=== PATIENT | female | born 1955 | race Caucasian/White ===

== ENCOUNTER 2023-03-20 15:57 | Inpatient (IN) ==
[2023-03-20] MEDS ORDERED: 0.9 % SODIUM CHLORIDE 1,000 ML IV ONE (16:20)
--- NOTE | 2023-03-20 16:26 | Emergency Department Note ---
HPI General Chief complaint: Nausea/Vomiting/Diarrhea Stated complaint: Recheck labs Time Seen by Provider: 03/20/23 16:06 Source: family Mode of arrival: ambulatory Limitations: no limitations History of Present Illness HPI Narrative: Narrative: 67-year-old female presents to the emergency department after being seen at the [facility] for acute kidney injury, vomiting, and abdominal pain. Patient states that she has been vomiting for the past 3 days. She vomits every time she tries to eat or drink unless she is taking Zofran. Zofran does seem to control her symptoms. She has recently taken Zofran and is not currently nauseated. She has had pain in the upper abdomen that she describes as a pressure and bloating. It is relieved some with belching. She has had a few very small bowel movements and is passing minimal gas. She is urinating occasionally, her urine is dark in color. On review of systems patient admits to chills, she was feeling short of breath when she was more bloated, this is resolved, she has no other complaints. Related Data Previous Rx's Medication Instructions Recorded Relaxis Pad #1 ea 11/10/17 levothyroxine 150 mcg tablet See Rx Instructions .Route 09/12/20 .COMPLEX #90 tabs pramipexole 0.5 mg tablet See Rx Instructions .Route 10/11/20 .COMPLEX #90 tabs Allergies Allergy/AdvReac Type Severity Reaction Status Date / Time ropinirole [From Requip] AdvReac Mild Headache Verified 03/20/23 21:18 Shell Fish AdvReac Unknown Swelling Uncoded 03/20/23 21:23 of Lip/Tongue/Throat Review of Systems ROS ROS Narrative: Narrative: All systems ED: reviewed and negative except as stated. [facility] Narrative Patient History Narrative: Narrative: Medical/Surgical/Family History All Active Problems (Updated 03/20/23 @ 21:57 by Linda Lau PA-C) Acute kidney injury (Acute) Nausea & vomiting (Acute) Dyspnea on exertion (Acute) Cough (Acute) Acute bacterial sinusitis (Acute) Encounter for Health Maintenance Examination in Adult (Chronic) H/O esophagogastroduodenoscopy (Acute 05/11/99) History of hysterectomy (Chronic ~01/2003) History of oophorectomy (Acute) History of colonoscopy (Acute 03/02/08) History of carpal tunnel release (Acute) History of thyroidectomy (Chronic ~1992) History of tubal ligation (Acute ~1979) Lumbosacral or thoracic radiculopathy (Acute) Kidney stones (Chronic) Dyspepsia (Acute) Hypothyroidism (acquired) (Chronic 05/10/13) Situational depression (Chronic) RLS (restless legs syndrome) (Chronic) Rhinitis, allergic (Chronic) Thyroid nodule (Acute) Carpal tunnel syndrome (Acute) Colon polyps (Acute) Back pain (Acute) 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 Component of restless leg, stable on Mirapex Carpal tunnel syndrome Bilateral carpal tunnel. Nerve conduction study 04/14/12 in [facility]--Dr Ger Correa. Left hand carpal tunnel surgery 04/16/13--Dr Puentes; right hand approx. 05/2013 Colon polyps Colonoscopy 06/06/2008--Dr Vigil--hyperplastic polyp; mild uncomplicated divertculosis, left colon; hemorrhoids. Known family history of non-malignant polyps. Rescreen 8-40 years. Dyspepsia History of functional dyspepisa; negative H. pylori serology, EGD 1998 (Dr Vigil) Stable currently on hygenic measures. Hypothyroidism (acquired) (05/10/13) Kidney stones Distant HX; minimizes calcium intake; no calcium supplements. Lumbosacral or thoracic radiculopathy HX of low back pain; previous MRI and sequencing at the pain clinic. Component of restless leg; stable on Mirapex. Rhinitis, allergic Uses occasional over the counter antihistamines; does not get frequent infections RLS (restless legs syndrome) Stable on Mirapex Situational depression Family stress. 11/12/2012. Zoloft Thyroid nodule Hx benign by surgery in 1992 with subtotal thyroidectomy, Now on replacement therapy and goiter suppression Surgical History H/O esophagogastroduodenoscopy (05/11/99) Non-atrophic chronic gastritis, negative H pylori History of carpal tunnel release Left hand 04/16/12--DR PUENTES; right hand approx. 05/2012. History of colonoscopy (03/02/08) hyperplastic polyps. Rescreen 8-10 years History of hysterectomy (~01/2003) Total abdominal hysterectomy and bilateral salpingooophorectomy--Dr Kamar Alfonso History of oophorectomy 01/2003 Total abdominal hysterectomy and bilateral salpingooophorectomy-- Dr. Kamar Dotson History of thyroidectomy (~1992) Subtotal History of tubal ligation (~1979) Family History Sister Colon polyp Grandmother Lung cancer Mother Diabetes mellitus, type II HTN (hypertension) Father HTN (hypertension) Social History Smoking Status: Never smoker Alcohol Intake Frequency: holiday/special occasion only Substance Use: does not use Exam Narrative Narrative: Narrative: General Limitations: no limitations General appearance: Present alert and in no apparent distress Head Head: Present atraumatic Eye Eye: Present normal appearance and PERRL ENT ENT: Present other (Dry mucous membranes) Neck Neck: Absent lymphadenopathy Respiratory Respiratory: Present normal lung sounds bilaterally Cardiovascular Cardiovascular: Present regular rate and normal heart sounds Adbominal Abdominal: Present soft, normal bowel sounds and other (Left lower abdominal tenderness.) Extremities Extremities: Present normal inspection; Absent pedal edema or calf tenderness Back Back: Absent CVA tenderness (R) or CVA tenderness (L) Neurological Neurological: Present alert and oriented X3 Psychiatric Psychiatric: Present normal affect Skin Skin: Present warm (WNL) and dry Course Vital Signs Vital signs: Vital Signs Temperature 97.2 F 03/20/23 16:00 Pulse Rate 80 03/20/23 16:00 Respiratory Rate 17 03/20/23 16:00 Blood Pressure 185/84 03/20/23 16:00 Pulse Oximetry (%) 95 03/20/23 16:00 Oxygen Delivery Method Room Air 03/20/23 16:00 Temperature 98.6 F 03/20/23 21:28 Pulse Rate 65 03/20/23 21:28 Respiratory Rate 17 03/20/23 21:28 Blood Pressure 171/85 03/20/23 21:28 Pulse Oximetry (%) 95 03/20/23 21:28 Oxygen Delivery Method Room Air 03/20/23 21:28 [facility] MDM Narrative Medical decision making narrative: Narrative: Differential includes gastroenteritis, bowel obstruction, diverticulitis. Labs reviewed from minor care visit earlier today. White cell count 12.6 with no left shift, no anemia. BUN 35, creatinine 2.8. Patient is treated with IV fluids. She was offered medication for nausea and vomiting, but declined at this time. CT scan of the abdomen pelvis without IV contrast was ordered. CT scan shows no acute changes. Patient has acute kidney injury, likely due to dehydration from severe vomiting. I discussed the patient with hospitalist who is agreed to admit her. Lab Data Labs: Lab Results 03/20/23 03/20/23 03/20/23 Range/Units 17:51 17:51 17:51 TSH (0.27-5.01) uIU/mL Free T4 (0.93-1.70) ng/dL Urine Color Dobson Urine Appearance Cloudy A (Clear) Urine pH 5.0 (5.0-9.0) Ur Specific [place] 1.011 (1.000-1.035) Urine Protein 100 A (Negative) mg/dL Urine Glucose (UA) Negative (Negative) mg/dL Urine Ketones Negative (Negative) mg/dL Urine Occult Blood >=1.0 A (Negative) mg/dL Urine Nitrate Negative (Negative) Urine Bilirubin Negative (Negative) mg/dL Urine Urobilinogen Negative mg/dL Ur Leukocyte Esterase 250 A (Negative) /uL Urine RBC > 182 H (0-1) /hpf Urine WBC 137 H (0-4) /hpf Ur Squamous Epith Cells 0 (0-4) /hpf Urine Bacteria None (0) /hpf Hyaline Casts 221 H (0-2) /lph Ur Culture Indicated? yes Ur Random Creatinine 237.6 H (28.0-217.0) mg/dL Ur Random Sodium 11 mmol/L 03/20/23 Range/Units 18:35 TSH 0.01 L (0.27-5.01) uIU/mL Free T4 2.00 H (0.93-1.70) ng/dL Urine Color Urine Appearance (Clear) Urine pH (5.0-9.0) Ur Specific [place] (1.000-1.035) Urine Protein (Negative) mg/dL Urine Glucose (UA) (Negative) mg/dL Urine Ketones (Negative) mg/dL Urine Occult Blood (Negative) mg/dL Urine Nitrate (Negative) Urine Bilirubin (Negative) mg/dL Urine Urobilinogen mg/dL Ur Leukocyte Esterase (Negative) /uL Urine RBC (0-1) /hpf Urine WBC (0-4) /hpf Ur Squamous Epith Cells (0-4) /hpf Urine Bacteria (0) /hpf Hyaline Casts (0-2) /lph Ur Culture Indicated? Ur Random Creatinine (28.0-217.0) mg/dL Ur Random Sodium mmol/L Discharge Plan Patient/Caregiver Discharge Instructions Pt seen by REAL ESTATE ADMINISTRATIVE ASSISTANT/PA only: Yes Clinical Impression: Acute kidney injury, Nausea & vomiting Patient Disposition: Xfer As Inpt ([facility]) Discharge Date/Time: 03/20/23 21:01
--- NOTE | 2023-03-20 17:37 | Cat Scan Report ---
INDICATION: Left sided abdominal pain, nausea and vomiting COMPARISON: Plain film examination dated 03/20/2023 TECHNIQUE: Axial images were obtained through the abdomen and pelvis. Sagittally and coronally reformatted images. FINDINGS: Lung bases:Small bilateral pleural effusions, right larger than left. There is groundglass opacity in both lower lobes, right worse than left. Pneumonia is possible. Linear densities are consistent with scarring or atelectasis. Liver:Negative to the limits of noncontrast enhanced examination. Liver contour is smooth without evidence for cirrhosis Gallbladder, bilary:No calcified gallstones. No gallbladder wall thickening. No pericholecystic fluid. No dilated bile ducts Spleen:No splenomegaly Pancreas:No pancreatic mass. No peripancreatic abnormality Adrenal glands:Negative Kidneys,ureters,bladder:No solid renal mass. No hydronephrosis. No obstructing or nonobstructing calculi. No hydroureter. No ureteral calculus. No bladder stone. No detectable bladder mass. Gastrointestinal:Sigmoid colon diverticulosis. No evidence for diverticulitis. No detectable colonic mass. Negative small bowel. No mechanical small bowel obstruction. No bowel wall thickening. No focal abnormality. Negative stomach and duodenum. No focal abnormality. Appendix: The appendix is negative. There is a small appendicolith. No evidence for acute appendicitis Vascular:Mild calcification of the abdominal aorta. No abdominal aortic aneurysm Lymphatic:No retroperitoneal adenopathy. No significant mesenteric adenopathy. Mesentery, peritoneum:There is a small amount of free pelvic fluid. There are multiple surgical clips within the pelvis. No focal intra-abdominal abscess. No pneumoperitoneum. Reproductive:Previous hysterectomy. No adnexal mass Musculoskeletal:No lumbar compression fractures. No lytic lesions. Sacrum, pelvis, hips are negative No anterior abdominal wall or inguinal hernia. IMPRESSION: 1. Free pelvic fluid. No intra-abdominal abscess. No pneumoperitoneum 2. Multiple surgical clips in the pelvis. 3. Previous hysterectomy 4. Mild colonic diverticulosis. No evidence for diverticulitis 5. Small pleural effusions, right larger than left. Bilateral lower lobe parenchymal density may be secondary to pneumonia The exam was performed using radiation dose optimization techniques including, but not limited to, automated exposure control, adjustment of the mA and/or kV according to patient size and use of iterative reconstruction technique. Interpreted and Authenticated by: Malachi Taylor 03/20/23
[2023-03-20 18:59] LABS: Appearance,Urine CLOUDY (Clear); Bilirubin,Urine Negative (Negative); Color,Urine Tan; Culture Indicated,Urine yes; Glucose,Urine (UA) Negative (Negative); Ketones,Urine Negative (Negative); Leukocyte Esterase,Urine 250 /uL (Negative); Nitrate,Urine Negative (Negative); Protein,Urine 100 mg/dL (Negative); Specific Gravity,Urine 1.011 (1.000-1.035); Urine Blood >=1.0 mg/dL (Negative); Urine Hyaline Cast 221 /lph (0-2); Urine RBC > 182 /hpf (0-1); Urine Squamous Epithelial Cell 0 /hpf (0-4); Urine WBC 137 /hpf (0-4); Urobilinogen,Urine Negative
--- NOTE | 2023-03-20 19:24 | Internal Med History&Physical ---
HPI History of Present Illness Patient information: Note initiated : 03/20/23 at 7:18 pm Service Date, if different from initiated Date: [] Patient: Pilar Navarro a 67 y/o F admitted on for Recheck labs. Chief Complaint: [] History of present illness: Ms. Navarro is a 67 year old F Presents the ED with nausea vomiting and constipation. Patient states that since Friday afternoon she developed nausea vomiting. She is been vomiting 10-12 times per day. Unable to keep anything down. Has not been around anybody's been sick and no eating out any restaurants. She has been stressed lately though with a family gathering and her dog has been sick. She is been tired lately. Has some shortness of breath with ambulation and she says associated with this abdominal bloating. She says she had abdominal bloating lately. Says she is gained 10 pounds lately. She has a headache. No fever chills. Thyroid last checked last year on her annual exam. No change in medications. She said decreased urine output lately. She has a dry cough. Blood pressure was elevated in the ED at 185/84. She says last time she took it was a month ago and it was systolic in the 120s. She was seen at [facility] and told she was constipated and given some laxatives but then was called back because the lab work came back with acute kidney injury. Her creatinine was 2.8 up from an normal level. BUN elevated 35 and sodium mildly low 132. She also been having increased acid reflux. Urine in the ED was concerning for infection. She had a mild leukocytosis of 12.6. UA also showing prominent hyaline casts, is indicative of volume depletion from nausea vomiting and poor oral intake. CT abdomen pelvis did not show any obstruction or acute intra-abdominal pathology. Review of Systems: Pertinent positives as above. Denies fever/chills/chest or abdominal pain/diarrhea. Remaining 10 point review of system reviewed negative PHYSICAL EXAM General: Alert, Awake, No acute Distress, obese Eyes/N/T: EOMI, no scleral icterus, PERRL, dry MM Head/Neck: neck supple, full ROM, normocephalic atraumatic CV: RRR, No murmurs, normal s1/s2 Pulm: Clear b/l, no wheezing/rhonchi/rales, no respiratory distress Abd: soft, nontender, +BS x4 Ext: no clubbing/cyanosis/edema, nontender Neuro: Alert, CN 2-12 grossly intact, no focal deficits, moves all extremities, , sensations intact b/l upper/lower Psychiatric: Skin: warm/dry, normal color PFSH PFSH All Active Problems Dyspnea on exertion (Acute) Cough (Acute) Acute bacterial sinusitis (Acute) Encounter for Health Maintenance Examination in Adult (Chronic) H/O esophagogastroduodenoscopy (Acute 05/11/99) History of hysterectomy (Chronic ~01/2003) History of oophorectomy (Acute) History of colonoscopy (Acute 03/02/08) History of carpal tunnel release (Acute) History of thyroidectomy (Chronic ~1992) History of tubal ligation (Acute ~1979) Lumbosacral or thoracic radiculopathy (Acute) Kidney stones (Chronic) Dyspepsia (Acute) Hypothyroidism (acquired) (Chronic 05/10/13) Situational depression (Chronic) RLS (restless legs syndrome) (Chronic) Rhinitis, allergic (Chronic) Thyroid nodule (Acute) Carpal tunnel syndrome (Acute) Colon polyps (Acute) Back pain (Acute) 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 Component of restless leg, stable on Mirapex Carpal tunnel syndrome Bilateral carpal tunnel. Nerve conduction study 04/14/12 in [place]--Dr Ger Correa. Left hand carpal tunnel surgery 04/16/13--Dr Puentes; right hand approx. 05/2013 Colon polyps Colonoscopy 06/06/2008--Dr Vigil--hyperplastic polyp; mild uncomplicated divertculosis, left colon; hemorrhoids. Known family history of non-malignant polyps. Rescreen 8-40 years. Dyspepsia History of functional dyspepisa; negative H. pylori serology, EGD 1998 (Dr Vigil) Stable currently on hygenic measures. Hypothyroidism (acquired) (05/10/13) Kidney stones Distant HX; minimizes calcium intake; no calcium supplements. Lumbosacral or thoracic radiculopathy HX of low back pain; previous MRI and sequencing at the pain clinic. Component of restless leg; stable on Mirapex. Rhinitis, allergic Uses occasional over the counter antihistamines; does not get frequent infections RLS (restless legs syndrome) Stable on Mirapex Situational depression Family stress. 11/12/2012. Zoloft Thyroid nodule Hx benign by surgery in 1992 with subtotal thyroidectomy, Now on replacement therapy and goiter suppression Surgical History H/O esophagogastroduodenoscopy (05/11/99) Non-atrophic chronic gastritis, negative H pylori History of carpal tunnel release Left hand 04/16/12--DR PUENTES; right hand approx. 05/2012. History of colonoscopy (03/02/08) hyperplastic polyps. Rescreen 8-10 years History of hysterectomy (~01/2003) Total abdominal hysterectomy and bilateral salpingooophorectomy--Dr Kamar Alfonso History of oophorectomy 01/2003 Total abdominal hysterectomy and bilateral salpingooophorectomy-- Dr. Kamar Dotson History of thyroidectomy (~1992) Subtotal History of tubal ligation (~1979) Family History Sister Colon polyp Grandmother Lung cancer Mother Diabetes mellitus, type II HTN (hypertension) Father HTN (hypertension) Social History household members: significant other housing: house lives independently: Yes marital status: occupational status: employed occupation: Nurse at [employer] smoking status: Never smoker alcohol intake frequency: holiday/special occasion only substance use type: does not use MEDS/ALLERGIES Home Medications and Allergies Home Medications Medication Instructions Recorded Confirmed Type Relaxis Pad #1 ea 11/10/17 03/20/23 Rx levothyroxine 150 mcg tablet See Rx Instructions .Route 09/12/20 03/20/23 Rx .COMPLEX #90 tabs pramipexole 0.5 mg tablet See Rx Instructions .Route 10/11/20 03/20/23 Rx .COMPLEX #90 tabs Allergies Allergy/AdvReac Type Severity Reaction Status Date / Time ropinirole [From Requip] Allergy Unknown Headache Verified 03/20/23 12:48 Shell Fish Allergy Unknown Unknown Uncoded 03/20/23 12:48 EXAM Constitutional Vitals: Temp Pulse Resp BP Pulse Ox O2 Del Method 97.2 F 76 17 169/72 96 Room Air 03/20/23 16:00 03/20/23 19:01 03/20/23 16:00 03/20/23 19:01 03/20/23 19:01 03/20/23 16:00 DATA Data Completed and Pending Labs: Labs from last 24 hours 03/20/23 03/20/23 03/20/23 18:35 17:51 17:51 TSH Pending Free T4 Pending Urine Color Urine Appearance Urine pH Ur Specific [place] Urine Protein Urine Glucose (UA) Urine Ketones Urine Occult Blood Urine Nitrate Urine Bilirubin Urine Urobilinogen Ur Leukocyte Esterase Urine RBC Urine WBC Ur Squamous Epith Cells Urine Bacteria Hyaline Casts Ur Culture Indicated? Ur Random Creatinine 237.6 H Ur Random Sodium 11 03/20/23 17:51 TSH Free T4 Urine Color Dobson Urine Appearance Cloudy A Urine pH 5.0 Ur Specific [place] 1.011 Urine Protein 100 A Urine Glucose (UA) Negative Urine Ketones Negative Urine Occult Blood >=1.0 A Urine Nitrate Negative Urine Bilirubin Negative Urine Urobilinogen Negative Ur Leukocyte Esterase 250 A Urine RBC > 182 H Urine WBC 137 H Ur Squamous Epith Cells 0 Urine Bacteria None Hyaline Casts 221 H Ur Culture Indicated? yes Ur Random Creatinine Ur Random Sodium A/P Narrative A/P Narrative: A: *N/V: Unknown etiology, ?viral Gastroenteritis *KEMI on CKD II: *Hypothyroidism: On levothyroxine *UTI: *HYponatremia: *HTN: Patient states blood pressure typically normal, not on home Medication *Obesity: BMI 36 *Anxiety: Situational lately *RLS: On pramipexole *GERD w/pyrosis: On Prilosec *Constipation: * P: -IVF -monitor UOP/renal function -Monitor and replace electrolytes -Follow-up sodium -Antiemetics -check TSH/T4, -carafate x1 -Rocephin, pending UC. monitor cbc -prn IV hydralazine, monitor BP -Bowel regimen -Home medication reconciliation -PT/OT -ppx: Lovenox / ppi Time Spent With Patient Time: Total time spent is greater than 50% in coordination of care (as documented) at patient's floor/unit and/or counseling patient: Initial: Total time with patient: 75 - 90 minutes
[2023-03-20 19:30] LABS: Thyroid Stimulating Hormone 0.01 uIU/mL (0.27-5.01)
[2023-03-20] MEDS ORDERED: ACETAMINOPHEN 325 MG TABLET PO PRN (21:02)
[2023-03-20] MEDS ORDERED: POTASSIUM CHLORIDE 20 MEQ TABLET PO PRN ×2 (21:02)
[2023-03-20] MEDS ORDERED: cefTRIAXone 1 GM in DEXTROSE 5% IN WATER 50 ML IV SCH (21:02)
[2023-03-20] MEDS ORDERED: SUCRALFATE 1 GM/10 ML ORAL.SUSP PO ONE (21:02)
[2023-03-20] MEDS ORDERED: POTASSIUM CHLORIDE 40 MEQ in DEXTROSE 5% IN WATER 500 ML IV PRN (21:02)
[2023-03-20] MEDS ORDERED: MAGNESIUM SULFATE 2 GM/50 ML BAG IV PRN (21:02)
[2023-03-20] MEDS ORDERED: SENNOSIDES 1 TABLET PO PRN (21:02)
[2023-03-20] MEDS ORDERED: POLYETHYLENE GLYCOL 3350 17 GM PACKET PO PRN (21:02)
[2023-03-20] MEDS ORDERED: SENNOSIDES 8.8 MG/5 ML ML PT ONE (21:02)
[2023-03-20] MEDS: 0.9 % SODIUM CHLORIDE 1,000 ML IV SCH (21:41)
[2023-03-20] MEDS: DOCUSATE SODIUM 100 MG CAPSULE PO SCH (22:30)
[2023-03-20] MEDS: PRAMIPEXOLE 0.25 MG TABLET PO SCH (22:30)
[2023-03-20] MEDS: POLYETHYLENE GLYCOL 3350 17 GM PACKET PO SCH (22:31)
[2023-03-20] MEDS: SIMETHICONE 80 MG TAB.CHEW CHEWED SCH (22:31)
[2023-03-20] MEDS: hydrALAZINE 20 MG/ML VIAL IV PRN (22:31)
[2023-03-20] MEDS: 0.9 % SODIUM CHLORIDE 10 ML SYRINGE IV SCH (22:32)
[2023-03-20] MEDS: cefTRIAXone 1 GM VIAL IV SCH (22:32)
[2023-03-20] MEDS: ONDANSETRON 4 MG/2 ML VIAL IV PRN (22:59)
[2023-03-21] MEDS ORDERED: HYDROcodone/APAP 5/325MG TABLET PO PRN (00:14)
[2023-03-21] MEDS ORDERED: HYDROcodone/APAP 5/325MG TABLET PO ONE (00:21)
[2023-03-21] MEDS: 0.9 % SODIUM CHLORIDE 10 ML SYRINGE IV SCH ×4 (04:21→23:07)
[2023-03-21] MEDS: ONDANSETRON 4 MG/2 ML VIAL IV PRN (04:21)
[2023-03-21] MEDS: IPRATROPIUM/ALBUTEROL 3 ML AMPUL.NEB NEB PRN ×2 (05:11→22:54)
[2023-03-21 06:32] LABS: Basophils # (Auto) 0.03 K/mcL (0.00-0.30); Basophils % (Auto) 0.2 % (0.0-2.0); Eosinophils # (Auto) 0.02 K/mcL (0.00-0.70); Eosinophils % (Auto) 0.2 % (0.0-7.0); Hematocrit 35.7 % (34.1-44.9); Hemoglobin 11.8 g/dL (11.2-15.7); Lymphocytes # (Auto) 1.51 K/mcL (1.50-4.80); Lymphocytes % (Auto) 11.7 % (15.5-49.0); Mean Cell Volume 85.8 fL (80.0-100.0); Mean Corpuscular HGB Conc 33.1 g/dL (31.0-36.0); Mean Platelet Volume 10.1 fL (8.8-12.5); Monocytes # (Auto) 0.77 K/mcL (0.10-0.90); Platelet Count 277 K/mcL (140-440); RBC 4.16 M/mcL (3.59-5.38); Red Cell Distribution Width 11.3 % (11.5-14.5); WBC 12.9 K/mcL (4.5-11.0)
[2023-03-21 07:08] LABS: ALT/SGPT 12 U/L (<40); AST/SGOT 18 U/L (<32); Albumin 3.2 gm/dL (3.2-5.2); Albumin/Globulin Ratio 1.1 (1.0-2.3); Alkaline Phosphatase 82 U/L (39-117); Bilirubin,Direct < 0.2 mg/dL (0-0.3); Bilirubin,Total 0.5 mg/dL (0.1-1.0); Blood Urea Nitrogen 37 mg/dL (8-23); Calcium 8.7 mg/dL (8.6-10.4); Carbon Dioxide 20 mmol/L (22-30); Chloride 98 mmol/L (96-108); Glomerular Filtration Rate 16; Glucose 115 mg/dL (70-105); Lactate Dehydrogenase 221 U/L (135-225); Phosphorous 4.2 mg/dL (2.5-4.5); Triglycerides 97 mg/dL (<150); Uric Acid 8.9 mg/dL (2.5-8.0)
--- NOTE | 2023-03-21 07:17 | Internal Med Progress Note ---
SUBJECTIVE Subjective Patient information: Note initiated : 03/21/23 at 7:06 am Service Date, if different from initiated Date: [] Patient: Pilar Navarro a 67 y/o F admitted on 03/20/23 for Recheck labs- KEMI,Hyponatremia. Chief Complaint: [] Interval history: History of present illness: Ms. Navarro is a 67 year old F Presents the ED with nausea vomiting and constipation. Patient states that since Friday she developed nausea vomiting. She is been vomiting 10-12 times per day. Unable to keep anything down. Has not been around anybody's been sick and no eating out any restaurants. She has been stressed lately though with a family gathering and her dog has been sick. She is been tired lately. Has some shortness of breath with ambulation and she says associated with this abdominal bloating. She says she had abdominal bloa ting lately. Says she is gained 10 pounds lately. She has a headache. No fever chills. Thyroid last checked last year on her annual exam. No change in medications. She said decreased urine output lately. She has a dry cough. Blood pressure was elevated in the ED at 185/84. She says last time she took it was a month ago and it was systolic in the 120s. She was seen at [facility] and told she was constipated and given some laxatives but then was called back because the lab work came back with acute kidney injury. Her creatinine was 2.8 up from an normal level. BUN elevated 35 and sodium m ildly low 132. She also been having increased acid reflux. Urine in the ED was concerning for infection. She had a mild leukocytosis of 12.6. UA also showing prominent hyaline casts, is indicative of volume depletion from nausea vomiting and poor oral intake. CT abdomen pelvis did not show any obstruction or acute intra-abdominal pathology. 6/ No change in renal function overnight. Low urine output. She also had nausea vomiting overnight and bloating abdominal pain. Also complains of headache and she think that is from not getting her coffee. Nephrology consulted. Will check BNP and eval cardiac component. Patient did noted to have small bilateral pleural effusions. T4 elevated TSH low. We will decrease home levothyroxine. Leukocytosis persistent. Check bandemia. Her med list states 150 mcg levothyroxine but it was lowered and she has been taking 125 mcg of levothyroxine. Review of Systems: Pertinent positives as above. Denies fever/chills/chest or abdominal pain/diarrhea. PHYSICAL EXAM General: Alert, Awake, No acute Distress, obese Eyes/N/T: EOMI, no scleral icterus, Head/Neck: neck supple, full ROM, CV: RRR, No murmurs, Pulm: Clear b/l, no wheezing/rhonchi/rales, no respiratory distress Abd: soft, nontender, +BS x4 Ext: no clubbing/cyanosis/edema, nontender Neuro: Alert, intact, no focal deficits, moves all extremities, , sensations intact b/l upper/lower Psychiatric: Skin: warm/dry, normal color Constitutional Vitals: Vital Signs Temp Pulse Resp BP Pulse Ox O2 Del Method 97.8 F 72 17 148/82 96 Room Air 03/21/23 05:06 03/21/23 05:06 03/21/23 05:06 03/21/23 05:06 03/21/23 05:06 03/21/23 05:06 Period Temp Pulse Resp BP Sys/Negro Pulse Ox O2 Del Method O2 Flow Rate Last 24 Hr 97.2 F-98.6 F 65-88 17-18 144-185/59-85 95-96 Room Air-Room Air Intake and Output 03/20/23 03/21/23 03/21/23 19:59 03:59 11:59 Intake Total 1000 400 Output Total 300 30 Balance 1000 -300 370 Weight 99.79 kg 102.285 kg Intake & Output: Intake & Output 03/20/23 03/21/23 03/21/23 19:59 03:59 11:59 Intake Total 1000 400 Output Total 300 30 Balance 1000 -300 370 Weight 99.79 kg 102.285 kg Intake: IV 1000 Sodium Chloride 0.9% 1,000 ml @ 1000 Wide Open IV BOLUS ONE Rx#: [id number] Oral 400 Output: Void Amount 200 Emesis 100 30 Other: Urine Appearance Cloudy Urine Color Brown Urine Odor Strong Stool Size Small Smear Stool Color Brown Brown Stool Consistency Soft Soft # Unmeasured Emesis 1 # Bowel Movements 1 1 # of times incontinent of 1 Bowels OBJ DATA Labs 03/21/23 05:32 03/21/23 05:32 Labs: Abnormal Lab Results 03/21/23 03/20/23 03/20/23 05:32 18:35 17:51 WBC 12.9 H RDW 11.3 L Immature Gran % (Auto) 0.9 H Neut % (Auto) 81.0 H Lymph % (Auto) 11.7 L Immature Gran # 0.11 H Absolute Neutrophils 10.45 H TSH 0.01 L Free T4 2.00 H Urine Appearance Urine Protein Urine Occult Blood Ur Leukocyte Esterase Urine RBC Urine WBC Hyaline Casts Ur Random Creatinine 237.6 H 03/20/23 17:51 WBC RDW Immature Gran % (Auto) Neut % (Auto) Lymph % (Auto) Immature Gran # Absolute Neutrophils TSH Free T4 Urine Appearance Cloudy A Urine Protein 100 A Urine Occult Blood >=1.0 A Ur Leukocyte Esterase 250 A Urine RBC > 182 H Urine WBC 137 H Hyaline Casts 221 H Ur Random Creatinine Meds: Medications Acetaminophen (Acetaminophen 325 Mg Tablet) 650 mg PO Q6HP PRN; Protocol PRN Reason: Per Pain Protocol/Fever > 101 Hydrocodone Bitart/Acetaminophen (Hydrocodone/Apap 5/325mg Tablet) 1 tab PO Q4HP PRN; Protocol PRN Reason: Per Pain Protocol Last Admin: 03/21/23 00:21 Dose: 1 tab Albuterol/Ipratropium (Ipratropium/Albuterol 3 Ml Ampul.Neb) 3 ml NEB Q4HP PRN PRN Reason: Shortness Of Breath Last Admin: 03/21/23 05:11 Dose: 3 ml Ceftriaxone Sodium (Ceftriaxone 1 Gm Vial) 1 gm IV Q24H [facility] Last Admin: 03/20/23 22:32 Dose: 1 gm Docusate Sodium (Docusate Sodium 100 Mg Capsule) 100 mg PO BID [facility] Last Admin: 03/20/23 22:30 Dose: 100 mg Enoxaparin Sodium (Enoxaparin 30 Mg/0.3 Ml Syringe) 30 mg SQ DAILY [facility] Hydralazine HCl (Hydralazine 20 Mg/Ml Vial) 0 mg IV Q2HP PRN PRN Reason: Hypertension Last Admin: 03/20/23 22:31 Dose: 20 mg Potassium Chloride 40 meq/ (Dextrose) 520 mls @ 130 mls/hr IV UD PRN PRN Reason: Potassium < 3 Magnesium Sulfate (Magnesium Sulfate) 2 gm in 50 mls @ 50 mls/hr IV UD PRN PRN Reason: Magnesium </= 1.6 Sodium Chloride (Sodium Chloride 0.9%) 1,000 mls @ 100 mls/hr IV .Q10H [facility] Stop: 03/21/23 17:01 Last Admin: 03/20/23 21:41 Dose: 100 mls/hr Lactulose (Lactulose 20 Gm/30 Ml Oral.Ivonne) 20 gm PO DAILYP PRN PRN Reason: Constipation Ondansetron HCl (Ondansetron 4 Mg/2 Ml Vial) 4 mg IV Q4HP PRN PRN Reason: Nausea And Vomiting Last Admin: 03/21/23 04:21 Dose: 4 mg Pantoprazole Sodium (Pantoprazole 40 Mg Vial) 40 mg IV QAMAC [facility] Polyethylene Glycol (Polyethylene Glycol 3350 17 Gm Packet) 17 gm PO TIDP PRN PRN Reason: Constipation Polyethylene Glycol (Polyethylene Glycol 3350 17 Gm Packet) 17 gm PO DAILY [facility] Last Admin: 03/20/23 22:31 Dose: 17 gm Potassium Chloride (Potassium Chloride 20 Meq Tablet) 40 meq PO UD PRN PRN Reason: Potssium is 3-3.5 Potassium Chloride (Potassium Chloride 20 Meq Tablet) 40 meq PO UD PRN PRN Reason: Potassium < 3 Pramipexole Dihydrochloride (Pramipexole 0.25 Mg Tablet) 0.5 mg PO HS [facility] Last Admin: 03/20/23 22:30 Dose: 0.5 mg Senna (Sennosides 1 Tablet) 2 tab PO DAILYP PRN PRN Reason: Constipation Simethicone (Simethicone 80 Mg Tab.Chew) 80 mg CHEWED [facility] Stop: 03/21/23 18:01 Last Admin: 03/20/23 22:31 Dose: 80 mg Sodium Chloride (0.9 % Sodium Chloride 10 Ml Syringe) 10 ml IV Q8 [facility] Last Admin: 03/21/23 04:21 Dose: 10 ml A/P Narrative A/P Narrative: A: *N/V: Unknown etiology, ?viral Gastroenteritis vs stress/anxiety vs other - *KEMI on CKD II: FeNa <1% -no improvement o/n, low UOP. ?cardiac component(cardiorenal), small b/l pleural effusions noted -no acute renal pathology on CT imaging *Metabolic acidosis: *Hypothyroidism: On levothyroxine -elevated t4 and suppressed TSH, check T3 *UTI: -leukocytosis *Hyponatremia: urine studies pending -132>129 *Hypermag: *HTN: Patient states blood pressure typically normal, not on home Medication *Obesity: BMI 36 *Anxiety: Situational lately *RLS: On pramipexole *GERD w/pyrosis: On Prilosec *Constipation: * P: -IVF's -monitor UOP/renal function -Nephrology consult, pending SPEP/IPEP -Avoid nephrotoxic medications -Monitor and replace electrolytes -Follow-up sodium -Antiemetics -Rocephin, pending UC. monitor cbc and check man diff -prn IV hydralazine, monitor BP -Bowel regimen -check bnp and consider echo -decrease home levothyroxine after clarifying dose -PT/OT -ppx: Lovenox / ppi full code Time Spent With Patient Time: Total time spent is greater than 50% in coordination of care (as documented) at patient's floor/unit and/or counseling patient: Subsequent: Total time with patient: 50 - 65 Minutes QUALITY VTE Deep Vein Thrombosis/Pulmonary Embolism Present on Admission: No
--- NOTE | 2023-03-21 07:38 | Nephrology Consult Note ---
HPI Date of Consult Consult Date: 03/21/23 Requesting physician: Bowen Mercedes Primary Care Provider: Christina Gomez DNP Consult Narrative Chief complaint: Nausea and vomiting Reason for consult: Acute kidney injury History of present illness: Pilar Navarro is a 67-year-old female with hypothyroidism admitted on 03/20/23. She was presented to [facility] care on 03/20/23 for nausea and vomiting for 2 days. She was not able to keep anything down. Her labs indicated acute kidney injury and she was sent to ED. Serum creatinine did not improve overnight despite IV fluids. Nephrology consultation was requested for acute kidney injury. cc:: CC: Bowen Mercedes Constitutional Constitutional: Present anorexia and weakness EENT Nose, mouth and throat: Absent nasal congestion or sore throat Cardiovascular Cardiovascular: Absent chest pain or palpatations Respiratory Respiratory: Present dyspnea and wheezing Gastrointestinal Gastrointestinal: Present nausea and vomiting Genitourinary Genitourinary: Absent dysuria or hematuria Musculoskeletal Musculoskeletal: Absent joint swelling Integumentary Integumentary: Absent rash or wounds Neurological Neurological: Absent confusion Psychiatric Psychiatric: Absent anxiety or panic attacks Hematologic/Lymphatic Hematologic/Lymphatic: Absent easy bleeding or easy bruising Allergic/Immunologic Allergic/Immunologic: Absent tongue swelling or uticaria PFSH PFSH All Active Problems (Updated 03/20/23 @ 21:57 by Linda Lau PA-C) Acute kidney injury (Acute) Nausea & vomiting (Acute) Dyspnea on exertion (Acute) Cough (Acute) Acute bacterial sinusitis (Acute) Encounter for Health Maintenance Examination in Adult (Chronic) H/O esophagogastroduodenoscopy (Acute 05/11/99) History of hysterectomy (Chronic ~01/2003) History of oophorectomy (Acute) History of colonoscopy (Acute 03/02/08) History of carpal tunnel release (Acute) History of thyroidectomy (Chronic ~1992) History of tubal ligation (Acute ~1979) Lumbosacral or thoracic radiculopathy (Acute) Kidney stones (Chronic) Dyspepsia (Acute) Hypothyroidism (acquired) (Chronic 05/10/13) Situational depression (Chronic) RLS (restless legs syndrome) (Chronic) Rhinitis, allergic (Chronic) Thyroid nodule (Acute) Carpal tunnel syndrome (Acute) Colon polyps (Acute) Back pain (Acute) 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 Component of restless leg, stable on Mirapex Carpal tunnel syndrome Bilateral carpal tunnel. Nerve conduction study 04/14/12 in [facility]--Dr Ger Correa. Left hand carpal tunnel surgery 04/16/13--Dr Puentes; right hand approx. 05/2013 Colon polyps Colonoscopy 06/06/2008--Dr Vigil--hyperplastic polyp; mild uncomplicated divertculosis, left colon; hemorrhoids. Known family history of non-malignant polyps. Rescreen 8-40 years. Dyspepsia History of functional dyspepisa; negative H. pylori serology, EGD 1998 (Dr Vigil) Stable currently on hygenic measures. Hypothyroidism (acquired) (05/10/13) Kidney stones Distant HX; minimizes calcium intake; no calcium supplements. Lumbosacral or thoracic radiculopathy HX of low back pain; previous MRI and sequencing at the pain clinic. Component of restless leg; stable on Mirapex. Rhinitis, allergic Uses occasional over the counter antihistamines; does not get frequent infections RLS (restless legs syndrome) Stable on Mirapex Situational depression Family stress. 11/12/2012. Zoloft Thyroid nodule Hx benign by surgery in 1992 with subtotal thyroidectomy, Now on replacement therapy and goiter suppression Surgical History H/O esophagogastroduodenoscopy (05/11/99) Non-atrophic chronic gastritis, negative H pylori History of carpal tunnel release Left hand 04/16/12--DR PUENTES; right hand approx. 05/2012. History of colonoscopy (03/02/08) hyperplastic polyps. Rescreen 8-10 years History of hysterectomy (~01/2003) Total abdominal hysterectomy and bilateral salpingooophorectomy--Dr Kamar Alfonso History of oophorectomy 01/2003 Total abdominal hysterectomy and bilateral salpingooophorectomy-- Dr. Kamar Dotson History of thyroidectomy (~1992) Subtotal History of tubal ligation (~1979) Family History Sister Colon polyp Grandmother Lung cancer Mother Diabetes mellitus, type II HTN (hypertension) Father HTN (hypertension) Social History household members: significant other housing: house lives independently: Yes marital status: occupational status: employed occupation: Nurse at [employer] smoking status: Former smoker quit date: 10/20/89 alcohol intake frequency: holiday/special occasion only substance use type: does not use MEDS/ALLERGIES Home Medications and Allergies Home Medications Medication Instructions Recorded Confirmed Type Relaxis Pad #1 ea 11/10/17 03/20/23 Rx levothyroxine 150 mcg tablet See Rx Instructions .Route 09/12/20 03/20/23 Rx .COMPLEX #90 tabs pramipexole 0.5 mg tablet See Rx Instructions .Route 10/11/20 03/20/23 Rx .COMPLEX #90 tabs Allergies Allergy/AdvReac Type Severity Reaction Status Date / Time ropinirole [From Requip] AdvReac Mild Headache Verified 03/20/23 21:18 Shell Fish AdvReac Unknown Swelling Uncoded 03/20/23 21:23 of Lip/Tongue/Throat Physical Examination Vital Signs Vital signs: Temp Pulse Resp BP Pulse Ox O2 Del Method 97.8 F 72 17 148/82 96 Room Air 03/21/23 05:06 03/21/23 05:06 03/21/23 05:06 03/21/23 05:06 03/21/23 05:06 03/21/23 05:06 General Appearance General appearance: fatigue EENT EENT: mucous membranes moist Neck Neck: no JVD Respiratory Respiratory: clear Cardiovascular Cardiology: no edema, regular rate and regular rhythm Gastrointestinal Gastrointestinal: no tenderness Integumentary Integumentary: no rash Neurologic Neurologic: no focal deficit and alert and oriented x3 Musculoskeletal Musculoskeletal: no deformities Psychiatric Psychiatric: mood/affect appropriate and cooperative Results Lab Results 03/21/23 05:32 03/21/23 05:32 Lab results: Most recent lab results Calcium 8.7 mg/dL (8.6-10.4) 03/21/23 05:32 Phosphorus 4.2 mg/dL (2.5-4.5) 03/21/23 05:32 Magnesium 2.7 mg/dL (1.6-2.5) H 03/21/23 05:32 A/P Assessment and plan (1) Acute kidney injury: Assessment and plan: Pilar Navarro is a 67-year-old female with hypothyroidism admitted on 03/20/23. She was presented to [facility] care on 03/20/23 for nausea and vomiting for 2 days. She was not able to keep anything down. Her labs indicated acute kidney injury and she was sent to ED. Serum creatinine did not improve overnight despite IV fl uids. Nephrology consultation was requested for acute kidney injury. Acute kidney injury, suspected acute tubular necrosis with intravascular volume depletion with initial hyponatremia, present on arrival. There is no recent history of IV contrast administration. There is no recent history of NSAID use. Intravascular volume depletion treated with adequate IV fluid resuscitation. Acute glomerulonephritis or acute interstitial nephritis are considered, but less likely. Work up: Urinalysis on 03/20/23: Dobson, cloudy, pH 5.0, SG 1.011, protein 100, blood >1.0, leukocyte esterase 250, urine sodium 11. CT Abdomen and Pelvis without contrast on 03/20/23: No solid renal mass. No hydronephrosis. No obstructing or nonobstructing calculi. No hydroureter. No ureteral calculus. No bladder stone. No detectable bladder mass. Free pelvic fluid. No intra-abdominal abscess. No pneumoperitoneum. Multiple surgical clips in the pelvis. Previous hysterectomy. Mild colonic diverticulosis. No evidence for diverticulitis. Small pleural effusions, right larger than left. Bilateral lower lobe parenchymal density may be secondary to pneumonia. Progress: Serum creatinine changed from 2.8 to 2.9 in the past 12 hours. Baseline serum creatinine: 0.8 on 01/12/19. Urine output: 200 ml reported in the past 12 hours. Hyponatremia. No fluid overload. No uremic symptoms. Recommendations/Plan: No acute hemodialysis need. SPEP/COREY ordered. Avoid NSAIDs, nephrotoxic medications and IV contrast. Monitor BMP and urine output. Further workup based on the progress. Status: Acute Time Spent With Patient Time: Total time spent is greater than 50% in coordination of care (as documented) at patient's floor/unit and/or counseling patient:
[2023-03-21] MEDS: 0.9 % SODIUM CHLORIDE 1,000 ML IV SCH (08:00)
[2023-03-21] MEDS ORDERED: [UNRECOGNIZED DRUG - OTHER] TD SCH (09:00)
[2023-03-21] MEDS ORDERED: ENOXAPARIN 30 MG/0.3 ML SYRINGE SQ SCH (09:00)
[2023-03-21] MEDS ORDERED: morphine 2 MG/ML VIAL IV PRN (09:14)
[2023-03-21] MEDS ORDERED: PROMETHAZINE 25 MG/ML VIAL IV PRN (09:14)
[2023-03-21] MEDS ORDERED: traMADol 50 MG TABLET PO PRN (09:15)
[2023-03-21] MEDS: PANTOPRAZOLE 40 MG VIAL IV SCH (09:18)
[2023-03-21] MEDS: SIMETHICONE 80 MG TAB.CHEW CHEWED SCH ×3 (09:18→18:24)
[2023-03-21] MEDS: DOCUSATE SODIUM 100 MG CAPSULE PO SCH ×2 (09:18→21:36)
[2023-03-21] MEDS: POLYETHYLENE GLYCOL 3350 17 GM PACKET PO SCH (09:26)
[2023-03-21 09:39] LABS: Free T3 1.7 pg/mL (2.0-4.4)
[2023-03-21] MEDS: cefTRIAXone 1 GM VIAL IV SCH (09:54)
[2023-03-21] MEDS: LACTULOSE 20 GM/30 ML ORAL.SOL PO PRN ×2 (09:55→14:24)
[2023-03-21] MEDS: METOCLOPRAMIDE 10 MG/2 ML VIAL IV SCH ×3 (12:50→21:36)
[2023-03-21 15:28] LABS: Band Neutrophils % 4 % (0-10); Lymphocytes % 15 % (15-49); Monocytes % (Manual) 4 % (1-12); Platelet Estimate NORMAL (Normal); RBC Morphology NORMAL (Normal); Segmented Neutrophils % 77 % (38-78)
[2023-03-21] MEDS: PRAMIPEXOLE 0.25 MG TABLET PO SCH ×2 (18:38→21:37)
[2023-03-21] MEDS ORDERED: MELATONIN 3 MG TABLET PO SCH (19:00)
[2023-03-21] MEDS ORDERED: diphenhydrAMINE 25 MG CAPSULE PO SCH (21:00)
[2023-03-21] MEDS: hydrALAZINE 20 MG/ML VIAL IV PRN (23:06)
[2023-03-21] MEDS ORDERED: clonazePAM 1 MG TABLET PO PRN (23:38)
[2023-03-21] MEDS ORDERED: clonazePAM 1 MG TABLET ONE (23:43)
[2023-03-22] MEDS: hydrALAZINE 20 MG/ML VIAL IV PRN ×3 (04:11→15:00)
[2023-03-22] MEDS: 0.9 % SODIUM CHLORIDE 10 ML SYRINGE IV SCH ×4 (04:12→22:00)
[2023-03-22] MEDS: IPRATROPIUM/ALBUTEROL 3 ML AMPUL.NEB NEB PRN ×2 (05:36→15:14)
--- NOTE | 2023-03-22 07:21 | Nephrology Progress Note ---
SUBJECTIVE Subjective Patient information: Note initiated : 03/22/23 at 7:20 am Patient: Pilar Navarro 67 y/o F admitted on 03/20/23 for Recheck labs- KEMI,Hyponatremia. Chief Complaint: Weakness Pertinent ROS: Weakness Constitutional Vitals: Vital Signs Temp Pulse Resp BP Pulse Ox O2 Del Method 97.7 F 92 H 17 156/73 96 Room Air 03/22/23 04:05 03/22/23 04:05 03/22/23 06:02 03/22/23 06:02 03/22/23 06:02 03/22/23 06:02 Period Temp Pulse Resp BP Sys/Negro Pulse Ox O2 Del Method O2 Flow Rate Last 24 Hr 97.7 F-98.9 F 67-94 16-19 135-160/62-86 94-97 Room Air-Room Air Intake and Output 03/21/23 03/22/23 03/22/23 19:59 03:59 11:59 Intake Total 1360 800 Output Total 150 400 Balance 1210 800 -400 Weight 230 lb 3.2 oz Intake & Output: Intake & Output 03/21/23 03/22/23 03/22/23 19:59 03:59 11:59 Intake Total 1360 800 Output Total 150 400 Balance 1210 800 -400 Weight 230 lb 3.2 oz Intake: IV 1000 Sodium Chloride 0.9% 1,000 ml @ 1000 100 mls/hr IV .Q10H [facility] Rx#: [id number] Oral 360 800 Output: Void Amount 150 400 Other: Meal Dinner Percent of Meal Consumed 50% Feeding Ability Independent Urine Appearance Cloudy Clear Urine Color Light Marielle Yellow Brown Dark Yellow Urine Odor Normal Normal Stool Size Moderate Small Stool Color Green Brown Stool Consistency Liquid Loose Loose # Bowel Movements 5 General appearance: cooperative and no acute distress Head Head exam: Present normal inspection Eye Eye exam: Present normal appearance ENT ENT exam: Present mucous membranes moist Respiratory Respiratory exam: Absent respiratory distress Cardiovascular Cardiovascular exam: Present normal rate and rhythm GI/Abdominal GI/Abdominal exam: Present soft; Absent tenderness Extremities Exam Extremities exam: Absent joint swelling or pedal edema Neurological Exam Neurological exam: Present alert and oriented X3 Psychiatric Psychiatric exam: Present normal affect and normal mood Skin Skin exam: Present warm; Absent rash A/P Assessment and plan (1) Acute kidney injury: Assessment and plan: Pilar Navarro is a 67-year-old female with hypothyroidism admitted on 03/20/23. She was presented to [facility] care on 03/20/23 for nausea and vomiting for 2 days. She was not able to keep anything down. Her labs indicated acute kidney injury and she was sent to ED. Serum creatinine did not improve overnight despite IV fluids. Nephrology consultation was requested for acute kidney injury. Acute kidney injury, suspected acute tubular necrosis with intravascular volume depletion with initial hyponatremia, present on arrival. There is no recent history of IV contrast administration. There is no recent history of NSAID use. Intravascular volume depletion treated with adequate IV fluid resuscitation. Acute glomerulonephritis or acute interstitial nephritis are considered, but less likely. Work up: Urinalysis on 03/20/23: Dobson, cloudy, pH 5.0, SG 1.011, protein 100, blood >1.0, leukocyte esterase 250, urine sodium 11. CT Abdomen and Pelvis without contrast on 03/20/23: No solid renal mass. No hydronephrosis. No obstructing or nonobstructing calculi. No hydroureter. No ureteral calculus. No bladder stone. No detectable bladder mass. Free pelvic fluid. No intra-abdominal abscess. No pneumoperitoneum. Multiple surgical clips in the pelvis. Previous hysterectomy. Mild colonic diverticulosis. No evidence for diverticulitis. Small pleural effusions, right larger than left. Bilateral lower lobe parenchymal density may be secondary to pneumonia. Progress: Serum creatinine 2.8 to 2.9 in the past 24 hours. Baseline serum creatinine: 0.8 on 01/12/19. Urine output: 400 ml reported in the past 12 hours. Hyponatremia. Suspected fluid overload. No uremic symptoms. Recommendations/Plan: Furosemide 40 mg IV x 1. No acute hemodialysis need. SPEP/COREY ordered. Avoid NSAIDs, nephrotoxic medications and IV contrast. Monitor BMP and urine output. Further workup based on the progress. Status: Acute Time Spent With Patient Time: Total time spent is greater than 50% in coordination of care (as documented) at patient's floor/unit and/or counseling patient:
[2023-03-22] MEDS ORDERED: FUROSEMIDE 40 MG/4 ML VIAL IV ONE (07:39)
[2023-03-22] MEDS ORDERED: clonazePAM 1 MG TABLET PO PRN (07:45)
--- NOTE | 2023-03-22 07:53 | Internal Med Progress Note ---
SUBJECTIVE Subjective Patient information: Note initiated : 03/22/23 at 7:50 am Service Date, if different from initiated Date: [] Patient: Pilar Navarro a 67 y/o F admitted on 03/20/23 for Recheck labs- KEMI,Hyponatremia. Chief Complaint: [] Interval history: History of present illness: Ms. Navarro is a 67 year old F Presents the ED with nausea vomiting and constipation. Patient states that since Friday she developed nausea vomiting. She is been vomiting 10-12 times per day. Unable to keep anything down. Has not been around anybody's been sick and no eating out any restaurants. She has been stressed lately though with a family gathering and her dog has been sick. She is been tired lately. Has some shortness of breath with ambulation and she says associated with this abdominal bloating. She says she had abdominal bloa ting lately. Says she is gained 10 pounds lately. She has a headache. No fever chills. Thyroid last checked last year on her annual exam. No change in medications. She said decreased urine output lately. She has a dry cough. Blood pressure was elevated in the ED at 185/84. She says last time she took it was a month ago and it was systolic in the 120s. She was seen at [facility] and told she was constipated and given some laxatives but then was called back because the lab work came back with acute kidney injury. Her creatinine was 2.8 up from an normal level. BUN elevated 35 and sodium m ildly low 132. She also been having increased acid reflux. Urine in the ED was concerning for infection. She had a mild leukocytosis of 12.6. UA also showing prominent hyaline casts, is indicative of volume depletion from nausea vomiting and poor oral intake. CT abdomen pelvis did not show any obstruction or acute intra-abdominal pathology. 6/ No change in renal function overnight. Low urine output. She also had nausea vomiting overnight and bloating abdominal pain. Also complains of headache and she think that is from not getting her coffee. Nephrology consulted. Will check BNP and eval cardiac component. Patient did noted to have small bilateral pleural effusions. T4 elevated TSH low. We will decrease home levothyroxine. Leukocytosis persistent. Check bandemia. Her med list states 150 mcg levothyroxine but it was lowered and she has been taking 125 mcg of levothyroxine. 6/ Urine culture growing strep agalactiae and being treated with Rocephin, leukocytosis improved. Creatinine minimally improved to 2.7 from 2.9 yesterday. Sodium slightly improved to 131. Metabolic acidosis noted slightly worse. Nephrology following. Lasix x1 given this morning. IV fluids stopped yesterday. Echo pending. Patient complains of wheezing and shortness of breath. She says she used inhalers when she had COVID which helped And she feels similar bronchospasms and she says the nebulizers help. She had hard time sleeping last night because her dog . Multiple bowel movements after the laxatives. Review of Systems: Pertinent positives as abovePlus mild headache. Denies fever/chills/chest or abdominal pain/. PHYSICAL EXAM General: Alert, Awake, No acute Distress, obese Eyes/N/T: EOMI, no scleral icterus, Head/Neck: neck supple, full ROM, CV: RRR, No murmurs, Pulm: mild rales and diminished b/l, no wheezing, no respiratory distress Abd: soft, nontender, +BS x4 Ext: no clubbing/cyanosis, trace b/l LE edema, nontender Neuro: Alert, intact, no focal deficits, moves all extremities, , sensations intact b/l upper/lower Psychiatric: Skin: warm/dry, normal color Constitutional Vitals: Vital Signs Temp Pulse Resp BP Pulse Ox O2 Del Method 97.7 F 92 H 17 156/73 96 Room Air 03/22/23 04:05 03/22/23 04:05 03/22/23 06:02 03/22/23 06:02 03/22/23 06:02 03/22/23 06:02 Period Temp Pulse Resp BP Sys/Negro Pulse Ox O2 Del Method O2 Flow Rate Last 24 Hr 97.7 F-98.9 F 67-94 16-19 135-160/62-86 94-97 Room Air-Room Air Intake and Output 03/21/23 03/22/23 03/22/23 19:59 03:59 11:59 Intake Total 1360 800 Output Total 150 400 Balance 1210 800 -400 Weight 104.417 kg Intake & Output: Intake & Output 03/21/23 03/22/23 03/22/23 19:59 03:59 11:59 Intake Total 1360 800 Output Total 150 400 Balance 1210 800 -400 Weight 104.417 kg Intake: IV 1000 Sodium Chloride 0.9% 1,000 ml @ 1000 100 mls/hr IV .Q10H [facility] Rx#: [id number] Oral 360 800 Output: Void Amount 150 400 Other: Meal Dinner Percent of Meal Consumed 50% Feeding Ability Independent Urine Appearance Cloudy Clear Urine Color Light Marielle Yellow Brown Dark Yellow Urine Odor Normal Normal Stool Size Moderate Small Stool Color Green Brown Stool Consistency Liquid Loose Loose # Bowel Movements 5 OBJ DATA Labs 03/22/23 08:04 03/22/23 08:04 Labs: Abnormal Lab Results 03/21/23 03/21/23 03/21/23 07:53 05:32 05:32 WBC 12.9 H RDW 11.3 L Immature Gran % (Auto) 0.9 H Neut % (Auto) 81.0 H Lymph % (Auto) 11.7 L Immature Gran # 0.11 H Absolute Neutrophils 10.45 H Sodium 129 L Carbon Dioxide 20 L BUN 37 H Creatinine 2.9 H Glucose 115 H Uric Acid 8.9 H Magnesium 2.7 H NT-Pro-B Natriuret Pep 4068.0 H TSH Free T4 Free T3 pg/mL 1.7 L Urine Appearance Urine Protein Urine Occult Blood Ur Leukocyte Esterase Urine RBC Urine WBC Hyaline Casts Ur Random Creatinine 03/20/23 03/20/23 03/20/23 18:35 17:51 17:51 WBC RDW Immature Gran % (Auto) Neut % (Auto) Lymph % (Auto) Immature Gran # Absolute Neutrophils Sodium Carbon Dioxide BUN Creatinine Glucose Uric Acid Magnesium NT-Pro-B Natriuret Pep TSH 0.01 L Free T4 2.00 H Free T3 pg/mL Urine Appearance Cloudy A Urine Protein 100 A Urine Occult Blood >=1.0 A Ur Leukocyte Esterase 250 A Urine RBC > 182 H Urine WBC 137 H Hyaline Casts 221 H Ur Random Creatinine 237.6 H Meds: Medications Acetaminophen (Acetaminophen 325 Mg Tablet) 650 mg PO Q6HP PRN; Protocol PRN Reason: Per Pain Protocol/Fever > 101 Albuterol/Ipratropium (Ipratropium/Albuterol 3 Ml Ampul.Neb) 3 ml NEB Q4HP PRN PRN Reason: Shortness Of Breath Last Admin: 03/22/23 05:36 Dose: 3 ml Ceftriaxone Sodium (Ceftriaxone 1 Gm Vial) 1 gm IV Q24H [facility] Last Admin: 03/21/23 09:54 Dose: 1 gm Clonazepam (Clonazepam 1 Mg Tablet) 1 mg PO BIDP PRN PRN Reason: Restless leg Diphenhydramine HCl (Diphenhydramine 25 Mg Capsule) 25 mg PO HS [facility] Last Admin: 03/21/23 21:36 Dose: 25 mg Docusate Sodium (Docusate Sodium 100 Mg Capsule) 100 mg PO BID [facility] Last Admin: 03/21/23 21:36 Dose: 100 mg Heparin Sodium (Porcine) (Heparin 5,000 Unit/Ml Vial) 5,000 unit SQ Q12 [facility] Hydralazine HCl (Hydralazine 20 Mg/Ml Vial) 0 mg IV Q2HP PRN PRN Reason: Hypertension Last Admin: 03/22/23 06:27 Dose: 10 mg Potassium Chloride 40 meq/ (Dextrose) 520 mls @ 130 mls/hr IV UD PRN PRN Reason: Potassium < 3 Magnesium Sulfate (Magnesium Sulfate) 2 gm in 50 mls @ 50 mls/hr IV UD PRN PRN Reason: Magnesium </= 1.6 Lactulose (Lactulose 20 Gm/30 Ml Oral.Ivonne) 20 gm PO DAILYP PRN PRN Reason: Constipation Last Admin: 03/21/23 14:24 Dose: 20 gm Melatonin (Melatonin 3 Mg Tablet) 3 mg PO QPM@1900 [facility] Last Admin: 03/21/23 19:45 Dose: 3 mg Morphine Sulfate (Morphine 2 Mg/Ml Vial) 0 mg IV Q3HP PRN; Protocol PRN Reason: Per Pain Protocol Ondansetron HCl (Ondansetron 4 Mg/2 Ml Vial) 4 mg IV Q4HP PRN PRN Reason: Nausea And Vomiting Last Admin: 03/21/23 04:21 Dose: 4 mg Pantoprazole Sodium (Pantoprazole 40 Mg Vial) 40 mg IV QAMAC [facility] Last Admin: 03/21/23 09:18 Dose: 40 mg Polyethylene Glycol (Polyethylene Glycol 3350 17 Gm Packet) 17 gm PO TIDP PRN PRN Reason: Constipation Potassium Chloride (Potassium Chloride 20 Meq Tablet) 40 meq PO UD PRN PRN Reason: Potssium is 3-3.5 Potassium Chloride (Potassium Chloride 20 Meq Tablet) 40 meq PO UD PRN PRN Reason: Potassium < 3 Pramipexole Dihydrochloride (Pramipexole 0.25 Mg Tablet) 0.5 mg PO HS [facility] Last Admin: 03/21/23 21:37 Dose: Not Given Promethazine HCl (Promethazine 25 Mg/Ml Vial) 12.5 mg IV Q4-6HP PRN PRN Reason: Nausea And Vomiting Senna (Sennosides 1 Tablet) 2 tab PO DAILYP PRN PRN Reason: Constipation Sodium Chloride (0.9 % Sodium Chloride 10 Ml Syringe) 10 ml IV Q8 [facility] Last Admin: 03/22/23 04:12 Dose: 10 ml Tramadol HCl (Tramadol 50 Mg Tablet) 50 mg PO Q4-6HP PRN; Protocol PRN Reason: Pain Last Admin: 03/21/23 23:06 Dose: 50 mg A/P Narrative A/P Narrative: A: *N/V: Unknown etiology, ?viral Gastroenteritis vs stress/anxiety vs other -improving *KEMI on CKD II: FeNa <1% -low UOP but mildly improving. ?cardiac component(cardiorenal), small b/l pleural effusions noted -no acute renal pathology on CT imaging *Metabolic acidosis: *Hypothyroidism: On levothyroxine -elevated t4 and suppressed TSH, check T3 *UTI(strep agalac): -leukocytosis *Hyponatremia: urine studies pending -132>129 *Hypermag: *HTN: Patient states blood pressure typically normal, not on home Medication *Obesity: BMI 36 *Anxiety: Situational lately *RLS: On pramipexole *GERD w/pyrosis: On Prilosec *Constipation: resolved P: -IVF's d/c, prn lasix -Nephrology following, pending SPEP/IPEP -monitor UOP/renal function -Avoid nephrotoxic medications -Monitor and replace electrolytes -Follow-up sodium -Antiemetics -Rocephin -prn IV hydralazine, monitor BP, -Bowel regimen -echo pending -decrease home levothyroxine to 100mcg -PT/OT -ppx: Lovenox / ppi full code Time Spent With Patient Time: Total time spent is greater than 50% in coordination of care (as documented) at patient's floor/unit and/or counseling patient: Subsequent: Total time with patient: 50 - 65 Minutes QUALITY VTE Deep Vein Thrombosis/Pulmonary Embolism Present on Admission: No
[2023-03-22] MEDS: METOCLOPRAMIDE 10 MG/2 ML VIAL IV SCH (08:29)
[2023-03-22] MEDS: PANTOPRAZOLE 40 MG VIAL IV SCH (08:29)
[2023-03-22 08:34] LABS: Basophils # (Auto) 0.06 K/mcL (0.00-0.30); Basophils % (Auto) 0.6 % (0.0-2.0); Eosinophils # (Auto) 0.07 K/mcL (0.00-0.70); Eosinophils % (Auto) 0.7 % (0.0-7.0); Hematocrit 35.1 % (34.1-44.9); Hemoglobin 12.1 g/dL (11.2-15.7); Lymphocytes # (Auto) 1.26 K/mcL (1.50-4.80); Lymphocytes % (Auto) 12.7 % (15.5-49.0); Mean Corpuscular HGB Conc 34.5 g/dL (31.0-36.0); Mean Platelet Volume 10.6 fL (8.8-12.5); Monocytes # (Auto) 1.08 K/mcL (0.10-0.90); Monocytes % (Auto) 10.8 % (1.0-12.0); Neutrophils % (Auto) 74.5 % (38.0-78.0); Platelet Count 249 K/mcL (140-440); RBC 4.18 M/mcL (3.59-5.38); Red Cell Distribution Width 11.9 % (11.5-14.5)
[2023-03-22 08:53] LABS: ALT/SGPT 11 U/L (<40); AST/SGOT 18 U/L (<32); Albumin 3.3 gm/dL (3.2-5.2); Albumin/Globulin Ratio 1.1 (1.0-2.3); Alkaline Phosphatase 81 U/L (39-117); Bilirubin,Direct < 0.2 mg/dL (0-0.3); Bilirubin,Total 0.4 mg/dL (0.1-1.0); Blood Urea Nitrogen 37 mg/dL (8-23); Calcium 8.5 mg/dL (8.6-10.4); Carbon Dioxide 18 mmol/L (22-30); Chloride 98 mmol/L (96-108); Globulin 2.9 gm/dL (2.2-3.7); Glomerular Filtration Rate 18; Glucose 108 mg/dL (70-105); Lactate Dehydrogenase 231 U/L (135-225); Phosphorous 4.2 mg/dL (2.5-4.5); Triglycerides 111 mg/dL (<150); Uric Acid 9.4 mg/dL (2.5-8.0)
[2023-03-22] MEDS ORDERED: cloNIDine HCL 0.1 MG TABLET PO SCH (09:00)
--- NOTE | 2023-03-22 10:24 | XRay Report ---
INDICATION: dyspnea, ?edema TECHNIQUE: AP portable upright chest x-ray COMPARISON: None FINDINGS: Pulmonary vascularity is prominent. Appearance is consistent with pulmonary congestion. There are bilateral, bibasilar infiltrates, right worse than left. Findings are consistent with pulmonary edema. Pneumonia is not excluded. There is pleural fluid, right worse than left IMPRESSION: Appearance is consistent with congestive heart failure Interpreted and Authenticated by: Malachi Taylor 03/22/23
[2023-03-22] MEDS: DOCUSATE SODIUM 100 MG CAPSULE PO SCH ×2 (11:50→22:00)
[2023-03-22] MEDS: HEPARIN 5,000 UNIT/ML VIAL SQ SCH ×2 (11:54→21:59)
[2023-03-22] MEDS: cefTRIAXone 1 GM VIAL IV SCH (14:02)
[2023-03-22] MEDS ORDERED: SUCRALFATE 1 GM/10 ML ORAL.SUSP PO ONE (15:42)
[2023-03-22] MEDS: cloNIDine HCL 0.1 MG TABLET PO PRN (16:01)
[2023-03-22] MEDS ORDERED: ENALAPRILAT 1.25 MG/ML VIAL IV PRN (16:07)
[2023-03-22] MEDS ORDERED: FUROSEMIDE 20 MG/2 ML VIAL IV ONE ×2 (16:08→16:45)
[2023-03-22] MEDS ORDERED: HYDROCHLOROTHIAZIDE 12.5 MG CAPSULE PO ONE (16:08)
[2023-03-22] MEDS ORDERED: LORazepam 2 MG/ML VIAL ONE (16:50)
[2023-03-22] MEDS: LORazepam 2 MG/ML VIAL IV PRN (16:56)
[2023-03-22] MEDS: PRAMIPEXOLE 0.25 MG TABLET PO SCH ×2 (16:57→21:50)
[2023-03-22] MEDS: MELATONIN 3 MG TABLET PO SCH (18:48)
[2023-03-23] MEDS: LORazepam 2 MG/ML VIAL IV PRN ×2 (01:19→23:09)
[2023-03-23] MEDS: cloNIDine HCL 0.1 MG TABLET PO PRN ×2 (01:20→20:48)
[2023-03-23 06:47] LABS: Blood Urea Nitrogen 34 mg/dL (8-23); Calcium 8.5 mg/dL (8.6-10.4); Carbon Dioxide 19 mmol/L (22-30); Chloride 100 mmol/L (96-108); Glomerular Filtration Rate 23; Glucose 93 mg/dL (70-105)
[2023-03-23] MEDS: 0.9 % SODIUM CHLORIDE 10 ML SYRINGE IV SCH ×3 (07:15→21:27)
--- NOTE | 2023-03-23 07:44 | Internal Med Progress Note ---
SUBJECTIVE Subjective Patient information: Note initiated : 03/23/23 at 7:39 am Service Date, if different from initiated Date: [] Patient: Pilar Navarro a 67 y/o F admitted on 03/20/23 for Recheck labs- KEMI,Hyponatremia. Chief Complaint: [] Interval history: History of present illness: Ms. Navarro is a 67 year old F Presents the ED with nausea vomiting and constipation. Patient states that since Friday she developed nausea vomiting. She is been vomiting 10-12 times per day. Unable to keep anything down. Has not been around anybody's been sick and no eating out any restaurants. She has been stressed lately though with a family gathering and her dog has been sick. She is been tired lately. Has some shortness of breath with ambulation and she says associated with this abdominal bloating. She says she had abdominal bloa ting lately. Says she is gained 10 pounds lately. She has a headache. No fever chills. Thyroid last checked last year on her annual exam. No change in medications. She said decreased urine output lately. She has a dry cough. Blood pressure was elevated in the ED at 185/84. She says last time she took it was a month ago and it was systolic in the 120s. She was seen at [facility] and told she was constipated and given some laxatives but then was called back because the lab work came back with acute kidney injury. Her creatinine was 2.8 up from an normal level. BUN elevated 35 and sodium m ildly low 132. She also been having increased acid reflux. Urine in the ED was concerning for infection. She had a mild leukocytosis of 12.6. UA also showing prominent hyaline casts, is indicative of volume depletion from nausea vomiting and poor oral intake. CT abdomen pelvis did not show any obstruction or acute intra-abdominal pathology. 6/ No change in renal function overnight. Low urine output. She also had nausea vomiting overnight and bloating abdominal pain. Also complains of headache and she think that is from not getting her coffee. Nephrology consulted. Will check BNP and eval cardiac component. Patient did noted to have small bilateral pleural effusions. T4 elevated TSH low. We will decrease home levothyroxine. Leukocytosis persistent. Check bandemia. Her med list states 150 mcg levothyroxine but it was lowered and she has been taking 125 mcg of levothyroxine. 03/22 Urine culture growing strep agalactiae and being treated with Rocephin, leukocytosis improved. Creatinine minimally improved to 2.7 from 2.9 yesterday. Sodium slightly improved to 131. Metabolic acidosis noted slightly worse. Nephrology following. Lasix x1 given this morning. IV fluids stopped yesterday. Echo pending. Patient complains of wheezing and shortness of breath. She says she used inhalers when she had COVID which helped And she feels similar bronchospasms and she says the nebulizers help. She had hard time sleeping last night because her dog . Multiple bowel movements after the laxatives. 03/23 Improved urine output yesterday with Lasix. Patient feels like she is breathing better. Does have a cough that she says is loosening up. Creatinine starting to improve. Still waiting for the echocardiogram read. No headache today. Review of Systems: Pertinent positives as above. Denies fever/chills/chest or abdominal pain/. PHYSICAL EXAM General: Alert, Awake, No acute Distress, obese Eyes/N/T: EOMI, no scleral icterus, Head/Neck: neck supple, full ROM, CV: RRR, No murmurs, Pulm: mild rales and diminished at bases - improving, no wheezing, no res piratory distress Abd: soft, nontender, +BS x4 Ext: no clubbing/cyanosis, trace b/l LE edema, nontender Neuro: Alert, intact, no focal deficits, moves all extremities, , sensations intact b/l upper/lower Psychiatric: Skin: warm/dry, normal color Constitutional Vitals: Vital Signs Temp Pulse Resp BP Pulse Ox O2 Del Method 98.6 F 77 24 H 177/63 97 Room Air 03/23/23 07:18 03/23/23 07:18 03/23/23 07:25 03/23/23 07:18 03/23/23 07:18 03/23/23 07:25 Period Temp Pulse Resp BP Sys/Negro Pulse Ox O2 Del Method O2 Flow Rate Last 24 Hr 97.5 F-98.6 F 77-121 16-24 113-177/63-90 93-97 Room Air-Room Air Intake and Output 03/22/23 03/23/23 03/23/23 19:59 03:59 11:59 Intake Total 400 1000 Output Total 401 400 200 Balance -1 -400 800 Weight 103.555 kg Intake & Output: Intake & Output 03/22/23 03/23/23 03/23/23 19:59 03:59 11:59 Intake Total 400 1000 Output Total 401 400 200 Balance -1 -400 800 Weight 103.555 kg Intake: Oral 400 1000 Output: Void Amount 400 400 200 # of times incontinent of urine 1 Other: Meal Lunch Percent of Meal Consumed 75% Feeding Ability Independent Urine Appearance Clear Clear Clear Urine Color Bright Yellow Yellow Yellow Urine Odor Normal Normal Stool Size Moderate Small Stool Color Brown Brown Stool Consistency Normal for Patient # Voids 2 # Bowel Movements 2 OBJ DATA Labs 03/22/23 08:04 03/23/23 05:24 Labs: Abnormal Lab Results 03/23/23 03/22/23 03/22/23 05:24 08:04 08:04 WBC RDW Immature Gran % (Auto) 0.7 H Neut % (Auto) Lymph % (Auto) 12.7 L Lymph # (Auto) 1.26 L [place] # (Auto) 1.08 H Immature Gran # 0.07 H Absolute Neutrophils Sodium 131 L 131 L Carbon Dioxide 19 L 18 L BUN 34 H 37 H Creatinine 2.2 H 2.7 H Glucose 108 H Uric Acid 9.4 H Calcium 8.5 L 8.5 L Magnesium Lactate Dehydrogenase 231 H NT-Pro-B Natriuret Pep TSH Free T4 Free T3 pg/mL Urine Appearance Urine Protein Urine Occult Blood Ur Leukocyte Esterase Urine RBC Urine WBC Hyaline Casts Ur Random Creatinine 03/21/23 03/21/23 03/21/23 07:53 05:32 05:32 WBC 12.9 H RDW 11.3 L Immature Gran % (Auto) 0.9 H Neut % (Auto) 81.0 H Lymph % (Auto) 11.7 L Lymph # (Auto) [place] # (Auto) Immature Gran # 0.11 H Absolute Neutrophils 10.45 H Sodium 129 L Carbon Dioxide 20 L BUN 37 H Creatinine 2.9 H Glucose 115 H Uric Acid 8.9 H Calcium Magnesium 2.7 H Lactate Dehydrogenase NT-Pro-B Natriuret Pep 4068.0 H TSH Free T4 Free T3 pg/mL 1.7 L Urine Appearance Urine Protein Urine Occult Blood Ur Leukocyte Esterase Urine RBC Urine WBC Hyaline Casts Ur Random Creatinine 03/20/23 03/20/23 03/20/23 18:35 17:51 17:51 WBC RDW Immature Gran % (Auto) Neut % (Auto) Lymph % (Auto) Lymph # (Auto) [place] # (Auto) Immature Gran # Absolute Neutrophils Sodium Carbon Dioxide BUN Creatinine Glucose Uric Acid Calcium Magnesium Lactate Dehydrogenase NT-Pro-B Natriuret Pep TSH 0.01 L Free T4 2.00 H Free T3 pg/mL Urine Appearance Cloudy A Urine Protein 100 A Urine Occult Blood >=1.0 A Ur Leukocyte Esterase 250 A Urine RBC > 182 H Urine WBC 137 H Hyaline Casts 221 H Ur Random Creatinine 237.6 H Meds: Medications Acetaminophen (Acetaminophen 325 Mg Tablet) 650 mg PO Q6HP PRN; Protocol PRN Reason: Per Pain Protocol/Fever > 101 Albuterol/Ipratropium (Ipratropium/Albuterol 3 Ml Ampul.Neb) 3 ml NEB Q4HP PRN PRN Reason: Shortness Of Breath Last Admin: 03/22/23 15:14 Dose: 3 ml Ceftriaxone Sodium (Ceftriaxone 1 Gm Vial) 1 gm IV Q24H [facility] Last Admin: 03/22/23 14:02 Dose: 1 gm Clonazepam (Clonazepam 1 Mg Tablet) 1 mg PO BIDP PRN PRN Reason: Restless leg Clonidine HCl (Clonidine Hcl 0.1 Mg Tablet) 0.1 mg PO QID PRN PRN Reason: sbp>150 Last Admin: 03/23/23 01:20 Dose: 0.1 mg Docusate Sodium (Docusate Sodium 100 Mg Capsule) 100 mg PO BID [facility] Last Admin: 03/22/23 22:00 Dose: 100 mg Enalaprilat (Enalaprilat 1.25 Mg/Ml Vial) 0 mg IV Q2HP PRN PRN Reason: Hypertension Heparin Sodium (Porcine) (Heparin 5,000 Unit/Ml Vial) 5,000 unit SQ Q12 [facility] Last Admin: 03/22/23 21:59 Dose: 5,000 unit Hydralazine HCl (Hydralazine 20 Mg/Ml Vial) 0 mg IV Q2HP PRN PRN Reason: Hypertension Last Admin: 03/22/23 06:27 Dose: 10 mg Potassium Chloride 40 meq/ (Dextrose) 520 mls @ 130 mls/hr IV UD PRN PRN Reason: Potassium < 3 Magnesium Sulfate (Magnesium Sulfate) 2 gm in 50 mls @ 50 mls/hr IV UD PRN PRN Reason: Magnesium </= 1.6 Lactulose (Lactulose 20 Gm/30 Ml Oral.Ivonne) 20 gm PO DAILYP PRN PRN Reason: Constipation Last Admin: 03/21/23 14:24 Dose: 20 gm Levothyroxine Sodium (Levothyroxine 100 Mcg Tablet) 100 mcg PO [facility] Lorazepam (Lorazepam 2 Mg/Ml Vial) 0.5 mg IV Q4-6HP PRN PRN Reason: ANXIETY/SEDATION Last Admin: 03/23/23 01:19 Dose: 0.5 mg Melatonin (Melatonin 3 Mg Tablet) 9 mg PO QPM@1900 [facility] Last Admin: 03/22/23 18:48 Dose: 9 mg Morphine Sulfate (Morphine 2 Mg/Ml Vial) 0 mg IV Q3HP PRN; Protocol PRN Reason: Per Pain Protocol Ondansetron HCl (Ondansetron 4 Mg/2 Ml Vial) 4 mg IV Q4HP PRN PRN Reason: Nausea And Vomiting Last Admin: 03/21/23 04:21 Dose: 4 mg Pantoprazole Sodium (Pantoprazole 40 Mg Vial) 40 mg IV [facility] Last Admin: 03/22/23 08:29 Dose: 40 mg Polyethylene Glycol (Polyethylene Glycol 3350 17 Gm Packet) 17 gm PO TIDP PRN PRN Reason: Constipation Potassium Chloride (Potassium Chloride 20 Meq Tablet) 40 meq PO UD PRN PRN Reason: Potssium is 3-3.5 Potassium Chloride (Potassium Chloride 20 Meq Tablet) 40 meq PO UD PRN PRN Reason: Potassium < 3 Pramipexole Dihydrochloride (Pramipexole 0.25 Mg Tablet) 0.5 mg PO [facility] Last Admin: 03/22/23 21:50 Dose: Not Given Promethazine HCl (Promethazine 25 Mg/Ml Vial) 12.5 mg IV Q4-6HP PRN PRN Reason: Nausea And Vomiting Senna (Sennosides 1 Tablet) 2 tab PO DAILYP PRN PRN Reason: Constipation Sodium Chloride (0.9 % Sodium Chloride 10 Ml Syringe) 10 ml IV Q8 [facility] Last Admin: 03/23/23 07:15 Dose: 10 ml Tramadol HCl (Tramadol 50 Mg Tablet) 50 mg PO Q4-6HP PRN; Protocol PRN Reason: Pain Last Admin: 03/21/23 23:06 Dose: 50 mg A/P Narrative A/P Narrative: A: *N/V: Unknown etiology, ?viral Gastroenteritis vs stress/anxiety vs other -improving *KEMI on CKD II(last labs from 01/2022): ?ATN -UOP improving. small b/l pleural effusions noted -echo with good EF, diastolic dysfunction -no acute renal pathology on CT imaging -2.8>2.9>2.7>2.2 *Volume overload: 2/2 above, IV lasix yesterday -echo with good EF, diastolic dysfunction *diastolic CHF: *Metabolic acidosis: *Hypothyroidism: On levothyroxine -elevated t4 and suppressed TSH, check total T3 *UTI(strep agalactiae and anginosis): -leukocytosis *Hyponatremia: -132>129>131 *Hypermag: improved *HTN: Patient states blood pressure typically normal, not on home Medication *Obesity: BMI 36 *Anxiety: Situational lately *RLS: On pramipexole *GERD w/pyrosis: On Prilosec *Constipation: resolved P: -IVF's d/c, prn lasix -Nephrology following, pending SPEP/IPEP -monitor UOP/renal function -Avoid nephrotoxic medications -Monitor and replace electrolytes -Follow-up sodium -Antiemetics -Rocephin -prn IV hydralazine, monitor BP, -Bowel regimen -decreased home levothyroxine to 100mcg -PT/OT -ppx: Lovenox / ppi full code Time Spent With Patient Time: Total time spent is greater than 50% in coordination of care (as documented) at patient's floor/unit and/or counseling patient: Subsequent: Total time with patient: 50 - 65 Minutes QUALITY VTE Deep Vein Thrombosis/Pulmonary Embolism Present on Admission: No
[2023-03-23] MEDS: LEVOTHYROXINE 100 MCG TABLET PO SCH (07:57)
[2023-03-23] MEDS: PANTOPRAZOLE 40 MG VIAL IV SCH (07:57)
[2023-03-23] MEDS ORDERED: SUCRALFATE 1 GM/10 ML ORAL.SUSP PO PRN (10:07)
[2023-03-23] MEDS: HEPARIN 5,000 UNIT/ML VIAL SQ SCH ×2 (11:08→20:48)
[2023-03-23] MEDS: guaiFENesin 600 MG TAB.SR.12H PO SCH ×2 (11:08→20:48)
[2023-03-23] MEDS: DOCUSATE SODIUM 100 MG CAPSULE PO SCH ×2 (11:09→20:48)
[2023-03-23] MEDS: cefTRIAXone 1 GM VIAL IV SCH (11:09)
--- NOTE | 2023-03-23 12:33 | Nephrology Progress Note ---
SUBJECTIVE Subjective Patient information: Note initiated : 03/23/23 at 12:33 pm Service Date, if different from initiated Date: [] Patient: Pilar Navarro 67 y/o F admitted on 03/20/23 for Recheck labs- KEMI,Hyponatremia. Chief Complaint: [weakness] Principal diagnosis: ARF new since 2018 Interval history: ED note and Hospital med notes reviewed. All this started with URI sx abd dry cough, progressed to GI sx with constipation and RODRIGUES. The CXR and ABd CT demonstrated bibasilar GGO and small pleural effusions. pro BNP is elevated but no inflammatory biomarkers not done. Echo pending. Vital Signs Temp Pulse Pulse Resp BP Pulse Ox O2 Del Method 03/23/23 07:25 24 H Room Air 03/23/23 07:18 37.0 C 77 20 177/63 97 Room Air 03/23/23 04:44 36.7 C 77 18 145/78 96 Room Air 03/22/23 20:00 18 Room Air 03/23/23 00:51 90 18 161/84 95 Room Air 03/23/23 00:00 36.8 C 94 H 19 166/84 95 Room Air 03/22/23 20:00 36.8 C 91 H 18 143/69 94 Room Air 03/22/23 18:46 36.5 C 97 H 18 113/90 97 Room Air 03/22/23 16:00 36.4 C 120 H 24 H 176/75 96 Room Air 03/22/23 15:15 121 H 16 93 Room Air Intake and Output 03/23/23 03/23/23 03/23/23 03:59 11:59 19:59 Intake Total 1240 Output Total 400 200 Balance -400 1040 Intake: Oral 1240 Output: Void Amount 400 200 Other: Meal Breakfast Percent of Meal Consumed 50% Feeding Ability Independent Urine Appearance Clear Clear Urine Color Yellow Yellow Urine Odor Normal Normal Stool Size Small Stool Color Brown Weight 103.555 kg Current Medications Acetaminophen (Acetaminophen 325 Mg Tablet) 650 mg PO Q6HP PRN; Protocol PRN Reason: Per Pain Protocol/Fever > 101 Albuterol/Ipratropium (Ipratropium/Albuterol 3 Ml Ampul.Neb) 3 ml NEB Q4HP PRN PRN Reason: Shortness Of Breath Last Admin: 03/22/23 15:14 Dose: 3 ml Ceftriaxone Sodium (Ceftriaxone 1 Gm Vial) 1 gm IV Q24H [facility] Last Admin: 03/23/23 11:09 Dose: 1 gm Clonazepam (Clonazepam 1 Mg Tablet) 1 mg PO BIDP PRN PRN Reason: Restless leg Clonidine HCl (Clonidine Hcl 0.1 Mg Tablet) 0.1 mg PO QID PRN PRN Reason: sbp>150 Last Admin: 03/23/23 01:20 Dose: 0.1 mg Docusate Sodium (Docusate Sodium 100 Mg Capsule) 100 mg PO BID [facility] Last Admin: 03/23/23 11:09 Dose: 100 mg Enalaprilat (Enalaprilat 1.25 Mg/Ml Vial) 0 mg IV Q2HP PRN PRN Reason: Hypertension Guaifenesin (Guaifenesin 600 Mg Tab.Sr.12h) 1,200 mg PO BID [facility] Stop: 03/24/23 21:01 Last Admin: 03/23/23 11:08 Dose: 1,200 mg Heparin Sodium (Porcine) (Heparin 5,000 Unit/Ml Vial) 5,000 unit SQ Q12 [facility] Last Admin: 03/23/23 11:08 Dose: 5,000 unit Hydralazine HCl (Hydralazine 20 Mg/Ml Vial) 0 mg IV Q2HP PRN PRN Reason: Hypertension Last Admin: 03/22/23 06:27 Dose: 10 mg Potassium Chloride 40 meq/ (Dextrose) 520 mls @ 130 mls/hr IV UD PRN PRN Reason: Potassium < 3 Magnesium Sulfate (Magnesium Sulfate) 2 gm in 50 mls @ 50 mls/hr IV UD PRN PRN Reason: Magnesium </= 1.6 Lactulose (Lactulose 20 Gm/30 Ml Oral.Ivonne) 20 gm PO DAILYP PRN PRN Reason: Constipation Last Admin: 03/21/23 14:24 Dose: 20 gm Levothyroxine Sodium (Levothyroxine 100 Mcg Tablet) 100 mcg PO QAMAC [facility] Last Admin: 03/23/23 07:57 Dose: 100 mcg Lorazepam (Lorazepam 2 Mg/Ml Vial) 0.5 mg IV Q4-6HP PRN PRN Reason: ANXIETY/SEDATION Last Admin: 03/23/23 01:19 Dose: 0.5 mg Melatonin (Melatonin 3 Mg Tablet) 9 mg PO QPM@1900 [facility] Last Admin: 03/22/23 18:48 Dose: 9 mg Morphine Sulfate (Morphine 2 Mg/Ml Vial) 0 mg IV Q3HP PRN; Protocol PRN Reason: Per Pain Protocol Ondansetron HCl (Ondansetron 4 Mg/2 Ml Vial) 4 mg IV Q4HP PRN PRN Reason: Nausea And Vomiting Last Admin: 03/21/23 04:21 Dose: 4 mg Pantoprazole Sodium (Pantoprazole 40 Mg Vial) [facility] Last Admin: 03/23/23 07:57 Dose: 40 mg Polyethylene Glycol (Polyethylene Glycol 3350 17 Gm Packet) 17 gm PO TIDP PRN PRN Reason: Constipation Potassium Chloride (Potassium Chloride 20 Meq Tablet) 40 meq PO UD PRN PRN Reason: Potssium is 3-3.5 Potassium Chloride (Potassium Chloride 20 Meq Tablet) 40 meq PO UD PRN PRN Reason: Potassium < 3 Pramipexole Dihydrochloride (Pramipexole 0.25 Mg Tablet) 0.5 mg PO [facility] Last Admin: 03/22/23 21:50 Dose: Not Given Promethazine HCl (Promethazine 25 Mg/Ml Vial) 12.5 mg IV Q4-6HP PRN PRN Reason: Nausea And Vomiting Senna (Sennosides 1 Tablet) 2 tab PO DAILYP PRN PRN Reason: Constipation Sodium Chloride (0.9 % Sodium Chloride 10 Ml Syringe) 10 ml IV Q8 [facility] Last Admin: 03/23/23 07:15 Dose: 10 ml Sucralfate (Sucralfate 1 Gm/10 Ml Oral.Susp) 1 gm PO Q6HP PRN PRN Reason: dyspepsia Tramadol HCl (Tramadol 50 Mg Tablet) 50 mg PO Q4-6HP PRN; Protocol PRN Reason: Pain Last Admin: 03/21/23 23:06 Dose: 50 mg Serum Sodium Serum Creatinine 03/21/23 07:53 NT-Pro-B Natriuret Pep 4068.0 H Echo read pending but LVEF look good to me. Ordering Physician:Linda Lau PA-C Date of Service:03/20/23 Procedure(s):CT abdomen pelvis wo con INDICATION: Left sided abdominal pain, nausea and vomiting COMPARISON: Plain film examination dated 03/20/2023 TECHNIQUE: Axial images were obtained through the abdomen and pelvis. Sagittally and coronally reformatted images. FINDINGS: Lung bases:Small bilateral pleural effusions, right larger than left. There is groundglass opacity in both lower lobes, right worse than left. Pneumonia is possible. Linear densities are consistent with scarring or atelectasis. Liver:Negative to the limits of noncontrast enhanced examination. Liver contour is smooth without evidence for cirrhosis Gallbladder, bilary:No calcified gallstones. No gallbladder wall thickening. No pericholecystic fluid. No dilated bile ducts Spleen:No splenomegaly Pancreas:No pancreatic mass. No peripancreatic abnormality Adrenal glands:Negative Kidneys,ureters,bladder:No solid renal mass. No hydronephrosis. No obstructing or nonobstructing calculi. No hydroureter. No ureteral calculus. No bladder stone. No detectable bladder mass. Gastrointestinal:Sigmoid colon diverticulosis. No evidence for diverticulitis. No detectable colonic mass. Negative small bowel. No mechanical small bowel obstruction. No bowel wall thickening. No focal abnormality. Negative stomach and duodenum. No focal abnormality. Appendix: The appendix is negative. There is a small appendicolith. No evidence for acute appendicitis Vascular:Mild calcification of the abdominal aorta. No abdominal aortic aneurysm Lymphatic:No retroperitoneal adenopathy. No significant mesenteric adenopathy. Mesentery, peritoneum:There is a small amount of free pelvic fluid. There are multiple surgical clips within the pelvis. No focal intra-abdominal abscess. No pneumoperitoneum. Reproductive:Previous hysterectomy. No adnexal mass Musculoskeletal:No lumbar compression fractures. No lytic lesions. Sacrum, pelvis, hips are negative No anterior abdominal wall or inguinal hernia. IMPRESSION: 1. Free pelvic fluid. No intra-abdominal abscess. No pneumoperitoneum 2. Multiple surgical clips in the pelvis. 3. Previous hysterectomy 4. Mild colonic diverticulosis. No evidence for diverticulitis 5. Small pleural effusions, right larger than left. Bilateral lower lobe parenchymal density may be secondary to pneumonia Ordering Physician:Bowen Mercedes D.O. Date of Service:03/22/23 Procedure(s):XR chest 1V portable INDICATION: dyspnea, ?edema TECHNIQUE: AP portable upright chest x-ray COMPARISON: None FINDINGS: Pulmonary vascularity is prominent. Appearance is consistent with pulmonary congestion. There are bilateral, bibasilar infiltrates, right worse than left. Findings are consistent with pulmonary edema. Pneumonia is not excluded. There is pleural fluid, right worse than left IMPRESSION: Appearance is consistent with congestive heart failure Pertinent ROS: All this started with URI sx abd dry cough, progressed to GI sx with constipation and RODRIGUES. The CXR and ABd CT demonstrated bibasilar GGO and small pleural effusions. pro BNP is elevated but no inflammatory biomarkers not done... Could this be a viral syndrome with decreased lyphocytes, shest and GI Sx such as COVID. IF so, steroids for RODRIGUES are in order as blood and urine cultures unrevealing (except strep agal bacturia). Additional PMFSH (Level 3 Only): Nothing to add Chart reviewed Constitutional Vitals: Vital Signs Temp Pulse Resp BP Pulse Ox O2 Del Method 37.0 C 77 24 H 177/63 97 Room Air 03/23/23 07:18 03/23/23 07:18 03/23/23 07:25 03/23/23 07:18 03/23/23 07:18 03/23/23 07:25 Period Temp Pulse Resp BP Sys/Negro Pulse Ox O2 Del Method O2 Flow Rate Last 24 Hr 36.4 C-37.0 C 77-121 16-24 113-177/63-90 93-97 Room Air-Room Air Intake and Output 03/23/23 03/23/23 03/23/23 03:59 11:59 19:59 Intake Total 1240 Output Total 400 200 Balance -400 1040 Weight 103.555 kg Intake & Output: Intake & Output 03/23/23 03/23/23 03/23/23 03:59 11:59 19:59 Intake Total 1240 Output Total 400 200 Balance -400 1040 Weight 103.555 kg Intake: Oral 1240 Output: Void Amount 400 200 Other: Meal Breakfast Percent of Meal Consumed 50% Feeding Ability Independent Urine Appearance Clear Clear Urine Color Yellow Yellow Urine Odor Normal Normal Stool Size Small Stool Color Brown General appearance: mild distress and obese Head Head exam: Present normal inspection Eye Eye exam: Present EOMI and PERRL; Absent conjunctival injection Pupils: Present PERRL ENT ENT exam: Present mucous membranes moist Neck Neck exam: Present normal inspection; Absent meningismus Respiratory Respiratory exam: Present rhonchi Cardiovascular Cardiovascular exam: Present normal rate and rhythm, JVD, +S1 and +S2; Absent gallop, irregular rhythm or rubs GI/Abdominal GI/Abdominal exam: Present normal bowel sounds Extremities Exam Extremities exam: Absent calf tenderness Additional comments: no pedal edema Neurological Exam Neurological exam: Present alert, CN II-XII intact and oriented X3 Psychiatric Psychiatric exam: Present anxious Skin Skin exam: Present normal color and warm A/P Assessment and plan (1) Acute kidney injury: Assessment and plan: Proteinuria and microscopic hematuria Plan: W/U acute GN with lab flog +/- renal biopsy Status: Acute Comment: SPEP negative, Fena <<<1%, consider acute GN. 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 She was presented to [facility] on 03/20/23 for nausea and vomiting for 2 days. She was not able to keep anything down. Her labs indicated acute kidney injury and she was sent to ED. Serum creatinine did not improve overnight despite IV fluids. Nephrology consultation was requested for acute kidney injury. Acute kidney injury, suspected acute tubular necrosis with intravascular volume depletion with initial hyponatremia, present on arrival. There is no recent history of IV contrast administration. There is no recent history of NSAID use. Intravascular volume depletion treated with adequate IV fluid resuscitation. Acute glomerulonephritis or acute interstitial nephritis are considered, but less likely. Work up: Urinalysis on 03/20/23: Dobson, cloudy, pH 5.0, SG 1.011, protein 100, blood >1.0, leukocyte esterase 250, urine sodium 11. CT Abdomen and Pelvis without contrast on 03/20/23: No solid renal mass. No hydronephrosis. No obstructing or nonobstructing calculi. No hydroureter. No ureteral calculus. No bladder stone. No detectable bladder mass. Free pelvic fluid. No intra-abdominal abscess. No pneumoperitoneum. Multiple surgical clips in the pelvis. Previous hysterectomy. Mild colonic diverticulosis. No evidence for diverticulitis. Small pleural effusions, right larger than left. Bilateral lower lobe parenchymal density may be secondary to pneumonia. Recommendations/Plan per Dr Shafer: Furosemide 40 mg IV x 1. No acute hemodialysis need. SPEP/COREY ordered and negative Avoid NSAIDs, nephrotoxic medications and IV contrast. Monitor BMP and urine output. 03/23/2023: Further workup based on the progress.=> ordered for AM. Sure looks like acute GN with prior URTI suggests IgAN. Pulmonary renal syndrome is possible as is a post covid syndrome Try bolus steroids for now (budesonide 15 mg po qAM until clinical case and Dx is clearer - standard of care for acute IgAN but if there are crescents on a renal biopsy will need cytoxan)... Plan of Treatment: Acute GN blood and urine studies Bolus steroids May need a renal biopsy if proteinuria is nephrotic range or RBC casts present Time Spent With Patient Time: Total time spent is greater than 50% in coordination of care (as documented) at patient's floor/unit and/or counseling patient: Subsequent: Total time with patient: Greater than or equal to 65 minutes Critical Care Time: No
--- NOTE | 2023-03-23 13:17 | Discharge Summary ---
Discharge Provider Provider IMPORTANT FOLLOW-UP INFORMATION FOR PCP: -Nephrology follow up -bolus dose steroids per nephro, GN w/u pending -start norvasc low dose and pt to monitor blood pressure at home and bring log to pcp -decreased home levothyroxine to 100mcg, f/u labs recommended in 4-6 weeks Patient information: Note initiated : 03/23/23 at 1:14 pm Service Date, if different from initiated Date: [] Patient: Pilar Navarro 67 y/o F admitted on 03/20/23 for Recheck labs- KEMI,Hyponatremia. Chief Complaint: [] Date of admission: 03/20/23 21:01 Discharge date: 03/24/23 Primary care physician: Christina Gomez DNP Consults: 03/20/23 Consult to Physician [CONS] Stat Comment: Consulting Provider: Bowen Mercedes Reason For Exam: Physician to Consult 03/21/23 07:18 Consult to Physician [CONS] Routine Comment: Consulting Provider: Uriel Shafer Reason For Exam: Physician to Consult COURSE Hospital Course Hospital course: History of present illness: Ms. Navarro is a 67 year old F Presents the ED with nausea vomiting and constipation. Patient states that since Friday she developed nausea vomiting. She is been vomiting 10-12 times per day. Unable to keep anything down. Has not been around anybody's been sick and no eating out any restaurants. She has been stressed lately though with a family gathering and her dog has been sick. She is been tired lately. Has some shortness of breath with ambulation and she says associated with this abdominal bloating. She says she had abdominal bloating lately. Says she is gained 10 pounds lately. She has a headache. No fever chills. Thyroid last checked last year on her annual exam. No change in medications. She said decreased urine output lately. She has a dry cough. Blood pressure was elevated in the ED at 185/84. She says last time she took it was a month ago and it was systolic in the 120s. She was seen at [facility] and told she was constipated and given some laxatives but then was called back because the lab work came back with acute kidney injury. Her creatinine was 2.8 up from an normal level. BUN elevated 35 and sodium mildly low 132. She also been having increased acid reflux. Urine in the ED was concerning for infection. She had a mild leukocytosis of 12.6. UA also showing prominent hyaline casts, is indicative of volume depletion from nausea vomiting and poor oral intake. CT abdomen pelvis did not show any obstruction or acute intra-abdominal pathology. 6/ No change in renal function overnight. Low urine output. She also had nausea vomiting overnight and bloating abdominal pain. Also complains of headache and she think that is from not getting her coffee. Nephrology consulted. Will check BNP and eval cardiac component. Patient did noted to have small bilateral pleural effusions. T4 elevated TSH low. We will decrease home levothyroxine. Leukocytosis persistent. Check bandemia. Her med list states 150 mcg levothyroxine but it was lowered and she has been taking 125 mcg of levothyroxine. 03/22 Urine culture growing strep agalactiae and being treated with Rocephin, leukocytosis improved. Creatinine minimally improved to 2.7 from 2.9 yesterday. Sodium slightly improved to 131. Metabolic acidosis noted slightly worse. Nephrology following. Lasix x1 given this morning. IV fluids stopped yesterday. Echo pending. Patient complains of wheezing and shortness of breath. She says she used inhalers when she had COVID which helped And she feels similar bronchospasms and she says the nebulizers help. She had hard time sleeping last night because her dog . Multiple bowel movements after the laxatives. 03/23 Improved urine output yesterday with Lasix. Patient feels like she is breathing better. Does have a cough that she says is loosening up. Creatinine starting to improve. Still waiting for the echocardiogram read. No headache today. 03/24 No overnight event or new complaints. Patient breathing sleeping better. Breathing better. Creatinine improving. Nephrology ordered further work-up labs. Echocardiogram shows good EF but with diastolic dysfunction. A: *N/V: Unknown etiology, ?viral Gastroenteritis vs stress/anxiety vs other -covid neg *KEMI on CKD II(last labs from 01/2022): ?GN -Cr 2.8>>1.8 *Volume overload: 2/2 above -echo with good EF, diastolic dysfunction *diastolic CHF: *Metabolic acidosis: *Hypothyroidism: On levothyroxine -elevated t4 and suppressed TSH, total T3 wnl *UTI(strep agalactiae and anginosis): -leukocytosis *Hyponatremia: -132>129>131>132 *Hypermag: *HTN: Patient states blood pressure typically normal, not on home Medication *Obesity: BMI 36 *Anxiety: Situational lately *RLS: On pramipexole *GERD w/pyrosis: On Prilosec *Constipation: resolved P: -Nephrology following, -bolus dose steroids per nephro, GN w/u pending -monitor UOP/renal function -start norvasc low dose and pt to monitor BP at home -decreased home levothyroxine to 100mcg, f/u labs recommended in 4-6 weeks Discharge diagnosis: Nausea vomiting acute kidney injury volume overload metabolic acidosis Secondary discharge diagnosis: Hypothyroidism UTI hyponatremia hypomagnesemia hypertension obesity anxiety restless leg syndrome GERD constipation Time Spent with Patient Time attestation: Total time spent providing and/or coordinating discharge services: Time spent: Greater than 30 minutes EXAM Constitutional Vitals: Temp Pulse Resp BP Pulse Ox O2 Del Method 98.6 F 78 20 177/63 97 Room Air 03/23/23 12:00 03/23/23 12:00 03/23/23 12:00 03/23/23 07:18 03/23/23 12:00 03/23/23 12:00 Discharge Data Data Completed and Pending Labs on day of discharge: Labs from last 24 hours 03/23/23 05:24 Sodium 131 L Potassium 4.2 Chloride 100 Carbon Dioxide 19 L Anion Gap 12.0 BUN 34 H Creatinine 2.2 H GFR Calculation 23 Glucose 93 Calcium 8.5 L Discharge Plan Patient/Caregiver Discharge Instructions Activity: increase activity as tolerated Diet: Regular Diet Prescriptions: New albuterol sulfate 90 mcg/actuation HFA aerosol inhaler 2 puff inhalation Q6H PRN (Reason: shortness of breath or wheezing) Qty: 8.5 0RF levothyroxine 100 mcg capsule 100 mcg PO QDAY Qty: 30 0RF famotidine [Pepcid] 20 mg tablet 20 mg PO QDAY Qty: 30 0RF amlodipine [Norvasc] 2.5 mg tablet 2.5 mg PO QDAY Qty: 30 0RF Continued pramipexole 0.5 mg tablet See Rx Instructions .ROUTE .COMPLEX Qty: 90 3RF Dose Instruction: TAKE 1 TABLET BY MOUTH EVERY NIGHT AT BEDTIME Rx Instructions: TAKE 1 TABLET BY MOUTH EVERY NIGHT AT BEDTIME (DME) Relaxis Pad Qty: 1 0RF Rx Instructions: use every night for restless leg clonazepam 1 mg Tablet 1 mg PO HSP PRN (Reason: Restless Leg(S)) Rx Instructions: administer 30 minutes before bedtime Discontinued levothyroxine 125 mcg tablet 125 mcg PO QDAY Follow Up Plan Follow up with: Christina Gomez DNP [Primary Care Provider] - 03/28/23 8:00 am (Please arrive 15 minutes early for checkin. ) Twan Delgado MD [Physician] - (You will be contacted by Dr. Delgado's office to schedule a follow up visit. If you have not heard from them by , please call them at [phone] to schedule a follow up visit to be seen in 10- 14 days. ) Patient Disposition: Home, Self-Care Plan of Treatment: Acute GN blood and urine studies Bolus steroids May need a renal biopsy if proteinuria is nephrotic range or RBC casts present Prognosis: Fair Overall status at discharge: patient is progressing back to baseline Discharge Orders: Discharge Order (Routine); Ordered 03/24/23 Ordered By: Bowen Mercedes [facility] Deep Vein Thrombosis/Pulmonary Embolism Present on Admission: No
[2023-03-23 13:59] LABS: Albumin PEP 2.85 gm/dL (3.10-4.70); Albumin/Globulin Ratio PEP 0.9 RATIO (0.9-1.7); Alpha-1-Globulins 0.33 gm/dL (0.10-0.50); Alpha-2-Globulins 0.85 gm/dL (0.40-1.20); Beta Globulins 0.89 gm/dL (0.60-1.20); Gamma Globulins 1.07 gm/dL (0.50-1.70); Globulin PEP 3.2 gm/dL (2.4-3.6)
[2023-03-23] MEDS: PRAMIPEXOLE 0.25 MG TABLET PO SCH ×2 (17:35→20:53)
[2023-03-23] MEDS ORDERED: FUROSEMIDE 20 MG/2 ML VIAL IV ONE (18:04)
[2023-03-23] MEDS: MELATONIN 3 MG TABLET PO SCH (19:53)
[2023-03-24] MEDS: 0.9 % SODIUM CHLORIDE 10 ML SYRINGE IV SCH (05:23)
[2023-03-24 06:32] LABS: Hematocrit 32.9 % (34.1-44.9); Hemoglobin 10.8 g/dL (11.2-15.7); Mean Cell Volume 86.4 fL (80.0-100.0); Mean Corpuscular HGB Conc 32.8 g/dL (31.0-36.0); Platelet Count 302 K/mcL (140-440); RBC 3.81 M/mcL (3.59-5.38); WBC 7.9 K/mcL (4.5-11.0)
[2023-03-24 06:40] LABS: Erythrocyte Sedimentation Rate 24 mm/hr (0-30)
[2023-03-24 06:47] LABS: Appearance,Urine CLEAR (Clear); Bilirubin,Urine Negative (Negative); Color,Urine YELLOW; Culture Indicated,Urine yes; Glucose,Urine (UA) Negative (Negative); Ketones,Urine Negative (Negative); Leukocyte Esterase,Urine 75 /uL (Negative); Mucus,Urine FEW /hpf; Nitrate,Urine Negative (Negative); Protein,Urine Negative (Negative); Specific Gravity,Urine 1.004 (1.000-1.035); Urine Blood >=1.0 mg/dL (Negative); Urine Hyaline Cast 1 /lph (0-2); Urine RBC 30 /hpf (0-3); Urine Squamous Epithelial Cell < 1 /hpf (0-4); Urine WBC 32 /hpf (0-4); Urobilinogen,Urine Negative
[2023-03-24 06:55] LABS: ALT/SGPT 18 U/L (<40); AST/SGOT 27 U/L (<32); Albumin 2.9 gm/dL (3.2-5.2); Alkaline Phosphatase 76 U/L (39-117); Bilirubin,Direct < 0.2 mg/dL (0-0.3); Bilirubin,Total 0.4 mg/dL (0.1-1.0); Blood Urea Nitrogen 33 mg/dL (8-23); Calcium 8.7 mg/dL (8.6-10.4); Carbon Dioxide 21 mmol/L (22-30); Chloride 102 mmol/L (96-108); Globulin 2.9 gm/dL (2.2-3.7); Glomerular Filtration Rate 29; Glucose 99 mg/dL (70-105); Lactate Dehydrogenase 206 U/L (135-225); Phosphorous 3.6 mg/dL (2.5-4.5); Triglycerides 101 mg/dL (<150); Uric Acid 11.3 mg/dL (2.5-8.0)
[2023-03-24 07:21] LABS: Creatinine, Spot Urine 37.5 mg/dL (28.0-217.0); Pro:Crea Ratio 0.35 (<0.20)
--- NOTE | 2023-03-24 07:29 | Internal Med Progress Note ---
SUBJECTIVE Subjective Patient information: Note initiated : 03/24/23 at 7:27 am Service Date, if different from initiated Date: [] Patient: Pilar Navarro a 67 y/o F admitted on 03/20/23 for Recheck labs- KEMI,Hyponatremia. Chief Complaint: [] Principal diagnosis: ARF new since 2019 Interval history: History of present illness: Ms. Navarro is a 67 year old F Presents the ED with nausea vomiting and constipation. Patient states that since Friday she developed nausea vomiting. She is been vomiting 10-12 times per day. Unable to keep anything down. Has not been around anybody's been sick and no eating out any restaurants. She has been stressed lately though with a family gathering and her dog has been sick. She is been tired lately. Has some shortness of breath with ambulation and she says associated with this abdominal bloating. She says she had abdominal bloating lately. Says she is gained 10 pounds lately. She has a headache. No fever chills. Thyroid last checked last year on her annual exam. No change in medications. She said decreased urine output lately. She has a dry cough. Blood pressure was elevated in the ED at 185/84. She says last time she took it was a month ago and it was systolic in the 120s. She was seen at [facility] and told she was constipated and given some laxatives but then was called back because the lab work came back with acute kidney injury. Her creatinine was 2.8 up from an normal level. BUN elevated 35 and sodium mildly low 132. She also been having increased acid reflux. Urine in the ED was concerning for infection. She had a mild leukocytosis of 12.6. UA also showing prominent hyaline casts, is indicative of volume depletion from nausea vomiting and poor oral intake. CT abdomen pelvis did not show any obstruction or acute intra-abdominal pa thology. 03/21 No change in renal function overnight. Low urine output. She also had nausea vomiting overnight and bloating abdominal pain. Also complains of headache and she think that is from not getting her coffee. Nephrology consulted. Will check BNP and eval cardiac component. Patient did n oted to have small bilateral pleural effusions. T4 elevated TSH low. We will decrease home levothyroxine. Leukocytosis persistent. Check bandemia. Her med list states 150 mcg levothyroxine but it was lowered and she has been taking 125 mcg of levothyroxine. 03/22 Urine culture growing strep agalactiae and being treated with Rocephin, leukocytosis improved. Creatinine minimally improved to 2.7 from 2.9 yesterday. Sodium slightly improved to 131. Metabolic acidosis noted slightly worse. Nephrology following. Lasix x1 given this morning. IV fluids stopped yesterday. Echo pending. Patient complains of wheezing and shortness of breath. She says she used inhalers when she had COVID which helped And she feels similar bronchospasms and she says the nebulizers help. She had hard time sleeping last night because her dog . Multiple bowel movements after the laxatives. 03/23 Improved urine output yesterday with Lasix. Patient feels like she is breathing better. Does have a cough that she says is loosening up. Creatinine starting to improve. Still waiting for the echocardiogram read. No headache today. 03/24 No overnight event or new complaints. Patient breathing sleeping better. Breathing better. Creatinine improving. Nephrology ordered further work-up labs. Echocardiogram shows good EF but with diastolic dysfunction. Review of Systems: Pertinent positives as above. Denies fever/chills/chest or abdominal pain/. PHYSICAL EXAM General: Alert, Awake, No acute Distress, obese Eyes/N/T: EOMI, no scleral icterus, Head/Neck: neck supple, full ROM, CV: RRR, No murmurs, Pulm: mild rales and diminished at bases - improving, no wheezing, no respiratory distress Abd: soft, nontender, +BS x4 Ext: no clubbing/cyanosis, trace b/l LE edema, nontender Neuro: Alert, intact, no focal deficits, moves all extremities, , sensations intact b/l upper/lower Psychiatric: Skin: warm/dry, normal color Constitutional Vitals: Vital Signs Temp Pulse Resp BP Pulse Ox O2 Del Method 97.9 F 72 18 137/84 95 Room Air 03/24/23 05:11 03/24/23 05:11 03/24/23 05:11 03/24/23 05:11 03/24/23 05:11 03/24/23 05:11 Period Temp Pulse Resp BP Sys/Negro Pulse Ox O2 Del Method O2 Flow Rate Last 24 Hr 97.7 F-98.6 F 63-81 18-20 137-166/78-89 93-97 Room Air-Room Air Intake and Output 03/23/23 03/24/23 03/24/23 19:59 03:59 11:59 Intake Total 450 500 Output Total 500 850 300 Balance -50 -850 200 Weight 104.462 kg Intake & Output: Intake & Output 03/23/23 03/24/23 03/24/23 19:59 03:59 11:59 Intake Total 450 500 Output Total 500 850 300 Balance -50 -850 200 Weight 104.462 kg Intake: Oral 450 500 Output: Void Amount 500 850 300 Other: Meal Dinner Percent of Meal Consumed 10% Feeding Ability Independent Urine Appearance Clear Clear Clear Urine Color Yellow Brown Dark Yellow Yellow Urine Odor Normal Normal Normal OBJ DATA Labs 03/24/23 05:42 03/24/23 05:42 Labs: Abnormal Lab Results 03/24/23 03/24/23 03/24/23 05:42 05:42 05:42 Hgb 10.8 L Hct 32.9 L Immature Gran % (Auto) Lymph % (Auto) Lymph # (Auto) [place] # (Auto) Immature Gran # Sodium 132 L Carbon Dioxide 21 L BUN 33 H Creatinine 1.8 H Glucose Uric Acid 11.3 H Calcium Lactate Dehydrogenase C-Reactive Protein 1.00 H NT-Pro-B Natriuret Pep Total Protein 5.8 L Albumin 2.9 L Albumin (PEP) Free T3 pg/mL Urine Occult Blood Ur Leukocyte Esterase Urine RBC Urine WBC Urine Mucus U [place] Prot/Creat Ratio 03/24/23 03/24/23 03/23/23 05:32 05:30 05:24 Hgb Hct Immature Gran % (Auto) Lymph % (Auto) Lymph # (Auto) [place] # (Auto) Immature Gran # Sodium 131 L Carbon Dioxide 19 L BUN 34 H Creatinine 2.2 H Glucose Uric Acid Calcium 8.5 L Lactate Dehydrogenase C-Reactive Protein NT-Pro-B Natriuret Pep Total Protein Albumin Albumin (PEP) Free T3 pg/mL Urine Occult Blood >=1.0 A Ur Leukocyte Esterase 75 A Urine RBC 30 H Urine WBC 32 H Urine Mucus Few A U [place] Prot/Creat Ratio 0.35 H 03/22/23 03/22/23 03/21/23 08:04 08:04 07:53 Hgb Hct Immature Gran % (Auto) 0.7 H Lymph % (Auto) 12.7 L Lymph # (Auto) 1.26 L [place] # (Auto) 1.08 H Immature Gran # 0.07 H Sodium 131 L Carbon Dioxide 18 L BUN 37 H Creatinine 2.7 H Glucose 108 H Uric Acid 9.4 H Calcium 8.5 L Lactate Dehydrogenase 231 H C-Reactive Protein NT-Pro-B Natriuret Pep 4068.0 H Total Protein Albumin Albumin (PEP) Free T3 pg/mL 1.7 L Urine Occult Blood Ur Leukocyte Esterase Urine RBC Urine WBC Urine Mucus U [place] Prot/Creat Ratio 03/21/23 07:52 Hgb Hct Immature Gran % (Auto) Lymph % (Auto) Lymph # (Auto) [place] # (Auto) Immature Gran # Sodium Carbon Dioxide BUN Creatinine Glucose Uric Acid Calcium Lactate Dehydrogenase C-Reactive Protein NT-Pro-B Natriuret Pep Total Protein Albumin Albumin (PEP) 2.85 L Free T3 pg/mL Urine Occult Blood Ur Leukocyte Esterase Urine RBC Urine WBC Urine Mucus U [place] Prot/Creat Ratio Meds: Medications Acetaminophen (Acetaminophen 325 Mg Tablet) 650 mg PO Q6HP PRN; Protocol PRN Reason: Per Pain Protocol/Fever > 101 Albuterol/Ipratropium (Ipratropium/Albuterol 3 Ml Ampul.Neb) 3 ml NEB Q4HP PRN PRN Reason: Shortness Of Breath Last Admin: 03/22/23 15:14 Dose: 3 ml Ceftriaxone Sodium (Ceftriaxone 1 Gm Vial) 1 gm IV Q24H [facility] Last Admin: 03/23/23 11:09 Dose: 1 gm Clonazepam (Clonazepam 1 Mg Tablet) 1 mg PO BIDP PRN PRN Reason: Restless leg Last Admin: 03/24/23 02:17 Dose: 1 mg Clonidine HCl (Clonidine Hcl 0.1 Mg Tablet) 0.1 mg PO QID PRN PRN Reason: sbp>150 Last Admin: 03/23/23 20:48 Dose: 0.1 mg Docusate Sodium (Docusate Sodium 100 Mg Capsule) 100 mg PO BID NADER Last Admin: 03/23/23 20:48 Dose: 100 mg Enalaprilat (Enalaprilat 1.25 Mg/Ml Vial) 0 mg IV Q2HP PRN PRN Reason: Hypertension Guaifenesin (Guaifenesin 600 Mg Tab.Sr.12h) 1,200 mg PO BID [facility] Stop: 03/24/23 21:01 Last Admin: 03/23/23 20:48 Dose: 1,200 mg Heparin Sodium (Porcine) (Heparin 5,000 Unit/Ml Vial) 5,000 unit SQ Q12 [facility] Last Admin: 03/23/23 20:48 Dose: 5,000 unit Hydralazine HCl (Hydralazine 20 Mg/Ml Vial) 0 mg IV Q2HP PRN PRN Reason: Hypertension Last Admin: 03/22/23 06:27 Dose: 10 mg Potassium Chloride 40 meq/ (Dextrose) 520 mls @ 130 mls/hr IV UD PRN PRN Reason: Potassium < 3 Magnesium Sulfate (Magnesium Sulfate) 2 gm in 50 mls @ 50 mls/hr IV UD PRN PRN Reason: Magnesium </= 1.6 Lactulose (Lactulose 20 Gm/30 Ml Oral.Ivonne) 20 gm PO DAILYP PRN PRN Reason: Constipation Last Admin: 03/21/23 14:24 Dose: 20 gm Levothyroxine Sodium ([facility] 100 Mcg Tablet) [facility] Last Admin: 03/23/23 07:57 Dose: 100 mcg Lorazepam (Lorazepam 2 Mg/Ml Vial) 0.5 mg IV Q4-6HP PRN PRN Reason: ANXIETY/SEDATION Last Admin: 03/23/23 23:09 Dose: 0.5 mg Melatonin (Melatonin 3 Mg Tablet) 9 mg PO QPM@1900 [facility] Last Admin: 03/23/23 19:53 Dose: 9 mg Methylprednisolone Sodium Succinate (Methylprednisolone Sod Succ 125 Mg/2 Ml Vial) 125 mg IV Q12 [facility] Stop: 03/29/23 09:01 Morphine Sulfate (Morphine 2 Mg/Ml Vial) 0 mg IV Q3HP PRN; Protocol PRN Reason: Per Pain Protocol Ondansetron HCl (Ondansetron 4 Mg/2 Ml Vial) 4 mg IV Q4HP PRN PRN Reason: Nausea And Vomiting Last Admin: 03/21/23 04:21 Dose: 4 mg Pantoprazole Sodium (Pantoprazole 40 Mg Vial) [facility] Last Admin: 03/23/23 07:57 Dose: 40 mg Polyethylene Glycol (Polyethylene Glycol 3350 17 Gm Packet) 17 gm PO TIDP PRN PRN Reason: Constipation Potassium Chloride (Potassium Chloride 20 Meq Tablet) 40 meq PO UD PRN PRN Reason: Potssium is 3-3.5 Potassium Chloride (Potassium Chloride 20 Meq Tablet) 40 meq PO UD PRN PRN Reason: Potassium < 3 Pramipexole Dihydrochloride (Pramipexole 0.25 Mg Tablet) 0.5 mg PO HS [facility] Last Admin: 03/23/23 20:53 Dose: Not Given Promethazine HCl (Promethazine 25 Mg/Ml Vial) 12.5 mg IV Q4-6HP PRN PRN Reason: Nausea And Vomiting Senna (Sennosides 1 Tablet) 2 tab PO DAILYP PRN PRN Reason: Constipation Sodium Chloride (0.9 % Sodium Chloride 10 Ml Syringe) 10 ml IV Q8 [facility] Last Admin: 03/24/23 05:23 Dose: 10 ml Sucralfate (Sucralfate 1 Gm/10 Ml Oral.Susp) 1 gm PO Q6HP PRN PRN Reason: dyspepsia Tramadol HCl (Tramadol 50 Mg Tablet) 50 mg PO Q4-6HP PRN; Protocol PRN Reason: Pain Last Admin: 03/21/23 23:06 Dose: 50 mg A/P Narrative A/P Narrative: A: *N/V: Unknown etiology, ?viral Gastroenteritis vs stress/anxiety vs other -improving. covid neg *KEMI on CKD II(last labs from 01/2022): ?GN -UOP improving. small b/l pleural effusions noted -echo with good EF, diastolic dysfunction -no acute renal pathology on CT imaging -2.8>2.9>>2.2>1.8 *Volume overload: 2/2 above, IV lasix yesterday -echo with good EF, diastolic dysfunction *diastolic CHF: *Metabolic acidosis: *Hypothyroidism: On levothyroxine -elevated t4 and suppressed TSH, check total T3 *UTI(strep agalactiae and anginosis): -leukocytosis *Hyponatremia: -132>129>131>132 *Hypermag: improved *HTN: Patient states blood pressure typically normal, not on home Medication *Obesity: BMI 36 *Anxiety: Situational lately *RLS: On pramipexole *GERD w/pyrosis: On Prilosec *Constipation: resolved P: -Nephrology following, pending SPEP/IPEP -bolus dose steroids per nephro, GN w/u pending -monitor UOP/renal function -Avoid nephrotoxic medications -Monitor and replace electrolytes -Follow-up sodium -Antiemetics -Rocephin -prn IV hydralazine, monitor BP, start norvasc -Bowel regimen -decreased home levothyroxine to 100mcg -PT/OT -ppx: Lovenox / ppi full code Plan of Treatment: Acute GN blood and urine studies Bolus steroids May need a renal biopsy if proteinuria is nephrotic range or RBC casts present Time Spent With Patient Time: Total time spent is greater than 50% in coordination of care (as documented) at patient's floor/unit and/or counseling patient: Subsequent: Total time with patient: 35 - 49 minutes QUALITY VTE Deep Vein Thrombosis/Pulmonary Embolism Present on Admission: No
--- NOTE | 2023-03-24 07:47 | Nephrology Progress Note ---
SUBJECTIVE Subjective Patient information: Note initiated : 03/24/23 at 7:47 am Service Date, if different from initiated Date: [] Patient: Pilar Navarro 67 y/o F admitted on 03/20/23 for Recheck labs- KEMI,Hyponatremia. Chief Complaint: [N/V/ARF] Principal diagnosis: ARF new since 2018 Interval history: ED note and Hospital med notes reviewed. All this started with URI sx abd dry cough, progressed to GI sx with constipation and RODRIGUES. The CXR and ABd CT demonstrated bibasilar GGO and small pleural effusions. pro BNP is elevated but no inflammatory biomarkers not done. Echo pending. Vital Signs Temp Pulse Resp BP Pulse Ox O2 Del Method 03/24/23 12:00 36.5 C 65 16 159/85 96 Room Air 03/24/23 08:00 36.5 C 69 16 169/85 96 Room Air 03/24/23 05:11 36.6 C 72 18 137/84 95 Room Air 03/23/23 20:00 Room Air 03/23/23 22:52 36.5 C 78 18 148/78 93 Room Air 03/23/23 19:46 36.6 C 81 19 161/84 96 Room Air 03/23/23 16:00 36.7 C 63 20 166/89 97 Room Air Intake and Output 03/24/23 03/24/23 03/24/23 03:59 11:59 19:59 Intake Total 500 Output Total 850 300 Balance -850 200 Intake: Oral 500 Output: Void Amount 850 300 Other: Urine Appearance Clear Clear Urine Color Dark Yellow Yellow Urine Odor Normal Normal Weight 104.462 kg 3 day of slowly improving GFR UOP > 1L/day GN labs sent Given 125 mg of IV solumedrol yesterday Will give budesonide 9 mg po qD till seen in follow-up Serum Creatinine 03/21/23 07:53 NT-Pro-B Natriuret Pep 4068.0 H Echo read pending but LVEF look good to me. Ordering Physician:Linda Lau PA-C Date of Service:03/20/23 Procedure(s):CT abdomen pelvis wo con INDICATION: Left sided abdominal pain, nausea and vomiting COMPARISON: Plain film examination dated 03/20/2023 TECHNIQUE: Axial images were obtained through the abdomen and pelvis. Sagittally and coronally reformatted images. FINDINGS: Lung bases:Small bilateral pleural effusions, right larger than left. There is groundglass opacity in both lower lobes, right worse than left. Pneumonia is possible. Linear densities are consistent with scarring or atelectasis. Liver:Negative to the limits of noncontrast enhanced examination. Liver contour is smooth without evidence for cirrhosis Gallbladder, bilary:No calcified gallstones. No gallbladder wall thickening. No pericholecystic fluid. No dilated bile ducts Spleen:No splenomegaly Pancreas:No pancreatic mass. No peripancreatic abnormality Adrenal glands:Negative Kidneys,ureters,bladder:No solid renal mass. No hydronephrosis. No obstructing or nonobstructing calculi. No hydroureter. No ureteral calculus. No bladder stone. No detectable bladder mass. Gastrointestinal:Sigmoid colon diverticulosis. No evidence for diverticulitis. No detectable colonic mass. Negative small bowel. No mechanical small bowel obstruction. No bowel wall thickening. No focal abnormality. Negative stomach and duodenum. No focal abnormality. Appendix: The appendix is negative. There is a small appendicolith. No evidence for acute appendicitis Vascular:Mild calcification of the abdominal aorta. No abdominal aortic aneurysm Lymphatic:No retroperitoneal adenopathy. No significant mesenteric adenopathy. Mesentery, peritoneum:There is a small amount of free pelvic fluid. There are multiple surgical clips within the pelvis. No focal intra-abdominal abscess. No pneumoperitoneum. Reproductive:Previous hysterectomy. No adnexal mass Musculoskeletal:No lumbar compression fractures. No lytic lesions. Sacrum, pelvis, hips are negative No anterior abdominal wall or inguinal hernia. IMPRESSION: 1. Free pelvic fluid. No intra-abdominal abscess. No pneumoperitoneum 2. Multiple surgical clips in the pelvis. 3. Previous hysterectomy 4. Mild colonic diverticulosis. No evidence for diverticulitis 5. Small pleural effusions, right larger than left. Bilateral lower lobe parenchymal density may be secondary to pneumonia Ordering Physician:Bowen Mercedes D.O. Date of Service:03/22/23 Procedure(s):XR chest 1V portable INDICATION: dyspnea, ?edema TECHNIQUE: AP portable upright chest x-ray COMPARISON: None FINDINGS: Pulmonary vascularity is prominent. Appearance is consistent with pulmonary congestion. There are bilateral, bibasilar infiltrates, right worse than left. Findings are consistent with pulmonary edema. Pneumonia is not excluded. There is pleural fluid, right worse than left IMPRESSION: Appearance is consistent with congestive heart failure Pertinent ROS: All this started with URI sx abd dry cough, progressed to GI sx with constipation and RODRIGUES. The CXR and ABd CT demonstrated bibasilar GGO and small pleural effusions. pro BNP is elevated but no inflammatory biomarkers not done... Could this be a viral syndrome with decreased lyphocytes, shest and GI Sx such as COVID. IF so, steroids for RODRIGUES are in order as blood and urine cultures unrevealing (except strep agal bacturia). Home today Additional PMFSH (Level 3 Only): Nothing to add Chart reviewed Constitutional Vitals: Vital Signs Temp Pulse Resp BP Pulse Ox O2 Del Method 36.6 C 72 18 137/84 95 Room Air 03/24/23 05:11 03/24/23 05:11 03/24/23 05:11 03/24/23 05:11 03/24/23 05:11 03/24/23 05:11 Period Temp Pulse Resp BP Sys/Negro Pulse Ox O2 Del Method O2 Flow Rate Last 24 Hr 36.5 C-37.0 C 63-81 18-20 137-166/78-89 93-97 Room Air-Room Air Intake and Output 03/23/23 03/24/23 03/24/23 19:59 03:59 11:59 Intake Total 450 500 Output Total 500 850 300 Balance -50 -850 200 Weight 104.462 kg Intake & Output: Intake & Output 03/23/23 03/24/23 03/24/23 19:59 03:59 11:59 Intake Total 450 500 Output Total 500 850 300 Balance -50 -850 200 Weight 104.462 kg Intake: Oral 450 500 Output: Void Amount 500 850 300 Other: Meal Dinner Percent of Meal Consumed 10% Feeding Ability Independent Urine Appearance Clear Clear Clear Urine Color Yellow Brown Dark Yellow Yellow Urine Odor Normal Normal Normal General appearance: mild distress and obese Head Head exam: Present normal inspection Eye Eye exam: Present EOMI and PERRL; Absent conjunctival injection Pupils: Present PERRL ENT ENT exam: Present mucous membranes moist Neck Neck exam: Present normal inspection; Absent meningismus Respiratory Respiratory exam: Present rhonchi Cardiovascular Cardiovascular exam: Present normal rate and rhythm, JVD, +S1 and +S2; Absent gallop, irregular rhythm or rubs GI/Abdominal GI/Abdominal exam: Present normal bowel sounds Extremities Exam Extremities exam: Absent calf tenderness Additional comments: no pedal edema Neurological Exam Neurological exam: Present alert, CN II-XII intact and oriented X3 Psychiatric Psychiatric exam: Present anxious Skin Skin exam: Present normal color and warm A/P Assessment and plan (1) Acute kidney injury: Assessment and plan: Proteinuria and microscopic hematuria Plan: W/U acute GN with lab flog +/- renal biopsy Status: Acute Comment: SPEP negative, Fena <<<1%, consider acute GN. 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 She was presented to [facility] on 03/20/23 for nausea and vomiting for 2 days. She was not able to keep anything down. Her labs indicated acute kidney injury and she was sent to ED. Serum creatinine did not improve overnight despite IV fluids. Nephrology consultation was requested for acute kidney injury. Acute kidney injury, suspected acute tubular necrosis with intravascular volume depletion with initial hyponatremia, present on arrival. There is no recent history of IV contrast administration. There is no recent history of NSAID use. Intravascular volume depletion treated with adequate IV fluid resuscitation. Acute glomerulonephritis or acute interstitial nephritis are considered, but less likely. Work up: Urinalysis on 03/20/23: Dobson, cloudy, pH 5.0, SG 1.011, protein 100, blood >1.0, leukocyte esterase 250, urine sodium 11. CT Abdomen and Pelvis without contrast on 03/20/23: No solid renal mass. No hydronephrosis. No obstructing or nonobstructing calculi. No hydroureter. No ureteral calculus. No bladder stone. No detectable bladder mass. Free pelvic fluid. No intra-abdominal abscess. No pneumoperitoneum. Multiple surgical clips in the pelvis. Previous hysterectomy. Mild colonic diverticulosis. No evidence for diverticulitis. Small pleural effusions, right larger than left. Bilateral lower lobe parenchymal density may be secondary to pneumonia. Recommendations/Plan per Dr Shafer: Furosemide 40 mg IV x 1. No acute hemodialysis need. SPEP/COREY ordered and negative Avoid NSAIDs, nephrotoxic medications and IV contrast. Monitor BMP and urine output. 03/23/2023: Further workup based on the progress.=> ordered for AM. Sure looks like acute GN with prior URTI suggests IgAN. Pulmonary renal syndrome is possible as is a post covid syndrome Try bolus steroids for now (budesonide 15 mg po qAM until clinical case and Dx is clearer - standard of care for acute IgAN but if there are crescents on a renal biopsy will need cytoxan)... 03/24/2023: GFR continues to slowly improve Random serum IgA level is not elevated Less proteinuria and hematuria on repeat urine Still some shortness of breath We will discharge home on budesonide 9 mg a day in the event this is IgA nephropathy. Plan follow-up within the week Plan of Treatment: Acute GN blood and urine studies Bolus steroids May need a renal biopsy if proteinuria is nephrotic range or RBC casts present Time Spent With Patient Time: Total time spent is greater than 50% in coordination of care (as documented) at patient's floor/unit and/or counseling patient: Initial: Total time with patient: 55 - 74 minutes Subsequent: Total time with patient: Greater than or equal to 65 minutes Critical Care Time: No
[2023-03-24] MEDS: LEVOTHYROXINE 100 MCG TABLET PO SCH (07:48)
[2023-03-24] MEDS: PANTOPRAZOLE 40 MG VIAL IV SCH ×2 (07:48→07:57)
[2023-03-24] MEDS: cloNIDine HCL 0.1 MG TABLET PO PRN (08:10)
[2023-03-24 08:21] LABS: Eosinophils % (Manual) 8 % (0-7); Lymphocytes % 33 % (15-49); Monocytes % (Manual) 11 % (1-12); Platelet Estimate NORMAL (Normal); RBC Morphology NORMAL (Normal); Segmented Neutrophils % 48 % (38-78)
[2023-03-24] MEDS: DOCUSATE SODIUM 100 MG CAPSULE PO SCH (08:34)
[2023-03-24] MEDS: HEPARIN 5,000 UNIT/ML VIAL SQ SCH (08:34)
[2023-03-24] MEDS: guaiFENesin 600 MG TAB.SR.12H PO SCH (08:35)
[2023-03-24] MEDS: cefTRIAXone 1 GM VIAL IV SCH (08:36)
[2023-03-24] MEDS ORDERED: CEFDINIR 300 MG CAPSULE PO ONE (08:45)
[2023-03-24] MEDS ORDERED: amLODIPine 5 MG TABLET PO SCH (09:00)
[2023-03-24] MEDS ORDERED: methylPREDNISolone SOD SUCC 125 MG/2 ML VIAL IV SCH (22:00)
[2023-03-25] MEDS ORDERED: BUDESONIDE 3 MG CAP.XL.24H PO SCH (09:00)
[2023-03-28 06:16] LABS: C3, Serum 26 mg/dL (83-193); C4, Serum 26 mg/dL (15-57)
[2023-03-29 13:52] LABS: Myeloperoxidase Antibody <1.0 AI (<1.0)
[2023-03-30 15:55] LABS: Complement C3C 26 mg/dL (83-193); Complement C4C 26 mg/dL (15-57); Rheumatoid Factor <14 IU/mL (<14)
== END 2023-03-24 12:53 | disposition home or self-care (01) | DRG 391 ==
LOC: ED 15:57 → MEDSUR 21:01 → UNDODISIN 03-21 11:30
PROVIDERS: ADMIT Internal Medicine; ATTEND Internal Medicine